=== PATIENT | male | born 1940 | race Caucasian/White ===

== ENCOUNTER → 2016-12-17 | Outpatient (CLI) | payer BC ==
[~2016-12-17] MED LIST: ASPI-461 PO; CHOL100027 PO; CIPR-255 PO; FINA5TAB4 PO; GLUC10007 PO; LORA10TA5 PO; MULT1CAP17 PO; QUIN10TA25 PO; SIMV20TA5 PO
--- NOTE | 2016-12-17 10:26 | DIAGNOSTIC IMAGING REPORT ---
ULTRASOUND KIDNEYS AND BLADDER CLINICAL HISTORY: Renal insufficiency. COMPARISON STUDY: No priors. TECHNIQUE: Real-time, grayscale, and color flow sonography of the kidneys and bladder is performed. Images are reviewed in the transverse and longitudinal planes. FINDINGS: Kidneys: The kidneys demonstrate mild cortical atrophy and are normal in echotexture. The right kidney measures 11.6 x 6.1 x 5.4 cm and the left kidney measures 11.8 x 6.3 x 5.3 cm. There is no hydronephrosis. No shadowing renal calculi are identified. A 10 mm echogenic focus in the interpolar left kidney may present infolded pericardial fat or a tiny angiomyolipoma. A 10 mm left renal cyst is identified. There is no sonographic evidence of contour deforming renal mass lesion. No perinephric fluid is identified. Bladder: The bladder is normal in appearance. Bilateral ureteral jets were seen. Upper abdomen: Survey images of the liver show evidence of hepatic steatosis. IMPRESSION: 1. The kidneys demonstrate mild cortical atrophy and are without hydronephrosis. 2. The bladder was normal as imaged. 3. Hepatic steatosis. 4. A 10 mm ovoid echogenic focus in the interpolar left kidney may represent a small angiomyolipoma versus adjacent perinephric fat. Electronically signed by: Alvarez Dumont M.D. 12/17/2016 10:24 AM Dictated Date/Time: 12/17/2016 10:22 AM
== END | disposition home or self-care (01) ==
LOC: C.ULTRBC 09:29
PROVIDERS: ATTEND Family Medicine
DX: N28.9 Disorder of kidney and ureter, unspecified (principal); K76.0 Fatty (change of) liver, not elsewhere classified; R93.41 Abnormal radiologic findings on diagnostic imaging of renal pelvis, ureter, or bladder

== ENCOUNTER → 2017-08-24 | Outpatient (CLI) | payer BC, OTHER ==
[~2017-08-24] MED LIST changes: +CINN1CAP2 PO; +GLUCTAB7 PO; -LORA10TA5 PO; +LORA10TA6 PO; +NAPR1TAB9 PO; +OMEG10007 PO; -QUIN10TA25 PO; +QUIN1TAB61 PO; +TAMS0.4C38 PO
--- NOTE | 2017-08-24 08:30 | DIAGNOSTIC IMAGING REPORT ---
SINGLE VIEW PELVIS CLINICAL HISTORY: Preoperative examination. Right hip arthroplasty. FINDINGS: An AP view of the hips and lower pelvis is compared to study dated 07/02/2017. The skeletal structures are osteopenic. No fracture is identified. There is moderate arthritic change in the right hip with near complete loss of the joint space which is greatest superiorly. There is mild associated bony sclerosis. Mild to moderate joint space narrowing is seen in the left hip. The sacral iliac joints are normal as imaged. Calcified phleboliths are observed in the pelvis. The overlying soft tissues are normal in appearance. IMPRESSION: Osteopenia and arthritic change in the hips, right greater than left. See above. Electronically signed by: Alvarez Dumont M.D. 08/24/2017 8:28 AM Dictated Date/Time: 08/24/2017 8:27 AM
== END | disposition home or self-care (01) ==
LOC: C.RDSM 08:20
PROVIDERS: ATTEND Physician Assistant
DX: Z01.818 Encounter for other preprocedural examination (principal); M25.551 Pain in right hip; M85.89 Other specified disorders of bone density and structure, multiple sites

== ENCOUNTER 2017-09-16 05:05 | Inpatient (IN) | payer BC, OTHER ==
--- NOTE | 2017-08-24 10:25 | PAT Medication Instructions ---
Service Date Aug 24, 2017. Current Home Medication List Aspirin (Aspirin), 81 MG PO QPM Cinnamon (Cinnamon), 500 MG PO BID Finasteride (Proscar), 5 MG PO QAM Fish Oil (Dixie-3), 1 CAP PO BID Tblobqsdmxv-Oreiklgutma-Ycs C- (Glucosamine Chondroitin), 1 TAB PO BID Loratadine (Claritin), 10 MG PO QPM Multiple Vitamins W/ Minerals (Multi For Him), 1 CAP PO QAM Naproxen (Aleve), 220 MG PO BID Quinapril Hcl (Accupril), 10 MG PO QAM Simvastatin (Zocor), 20 MG PO QPM Tamsulosin Hcl (Flomax), 0.4 MG PO BID Medication Instructions For Your Scheduled Surgery - Hold the following medications 2 weeks prior to surgery: Fish Oil (Dixie-3), 1 CAP PO BID Ibtehadulyx-Zmlxpdmktuk-Fbv C- (Glucosamine Chondroitin), 1 TAB PO BID Cinnamon (Cinnamon), 500 MG PO BID - Hold the following medications 10 days prior to surgery per surgeon for instructions: Naproxen (Aleve), 220 MG PO BID Aspirin (Aspirin), 81 MG PO QPM - Hold the following medications the morning of surgery: Finasteride (Proscar), 5 MG PO QAM Multiple Vitamins W/ Minerals (Multi For Him), 1 CAP PO QAM Quinapril Hcl (Accupril), 10 MG PO QAM Tamsulosin Hcl (Flomax), 0.4 MG PO BID - Take the following medications as scheduled the night before surgery: Tamsulosin Hcl (Flomax), 0.4 MG PO BID Simvastatin (Zocor), 20 MG PO QPM Loratadine (Claritin), 10 MG PO QPM If you have any questions please call us at [phone] or [phone] or [phone]
[2017-08-24 10:54] LABS: BASO % 0.5 %; BASO ABS # 0.02 K/uL (0-0.2); EOS % 3.2 %; EOS ABS # 0.14 K/uL (0-0.5); HEMATOCRIT 40.8 % (42-52); HEMOGLOBIN 14.1 g/dL (14.0-18.0); IG# 0.01 K/uL (0.00-0.02); LYMPH % 24.7 %; LYMPH ABS # 1.08 K/uL (1.2-3.4); MEAN CELL VOLUME 89.7 fL (80-100); MEAN CORPUSCULAR HGB CONC 34.6 g/dl (32-36); MEAN PLATELET VOLUME 10.1 fL (7.4-10.4); MONO ABS # 0.35 K/uL (0.11-0.59); NEUT % 63.4 %; NEUT ABS # 2.77 K/uL (1.4-6.5); PLATELET COUNT 150 K/uL (130-400); RED CELL DISTRIBUTION WIDTH CV 13.6 % (11.5-14.5); RED CELL DISTRIBUTION WIDTH SD 44.4 fL (36.4-46.3); WHITE BLOOD COUNT 4.37 K/uL (4.8-10.8)
[2017-08-24 11:05] LABS: PTT PATIENT 28.1 SECONDS (21.0-31.0)
[2017-08-24 11:50] LABS: HEMOGLOBIN A1C 5.7 % (4.5-5.6)
[2017-08-24 12:12] LABS: ALBUMIN 4.2 gm/dl (3.4-5.0); CALCIUM 8.6 mg/dl (8.5-10.1); CREATININE 0.97 mg/dl (0.60-1.40); POTASSIUM 4.2 mmol/L (3.5-5.1)
[2017-08-24 12:14] LABS: TOTAL PROTEIN 7.3 gm/dl (6.4-8.2)
--- NOTE | 2017-08-24 13:59 | History and Physical ---
History & Physical Date of Service Aug 24, 2017. History & Physical CHIEF COMPLAINT: Right hip pain. HISTORY OF PRESENT ILLNESS: This 77-year-old male presents to clinic today for his preoperative history and physical. The patient complains of significant right hip pain with associated gait disturbance since he began working at [employer] in December 2016. The patient states that over the past few months it has been affecting his activities of daily living. He notes significant difficulty when trying to get in and out of his car and while ambulating for long hours at work. The patient has had no relief with the use of nonsteroidal agents, but denies any injury to the right hip or any numbness or tingling in the affected extremity. PAST SURGICAL HISTORY: Colonoscopy x2, mole excision from the face and back. PAST MEDICAL HISTORY: Sleep apnea, benign prostatic hypertrophy, prediabetes, hepatic steatosis, hypertension, hyperlipidemia and history of renal calculi. FAMILY HISTORY: Brother diabetes and myocardial infarction. Father diabetes and myocardial infarction. Mother diabetes and stroke. ALLERGIES: The patient has no known drug allergies. HE HAS ENVIRONMENTAL ALLERGIES TO POLLEN. CURRENT MEDICATIONS: Aleve 220 mg 1 tab twice daily as needed for pain, aspirin 81 mg oral tablet 1 tab daily, cinnamon 500 mg oral tablet 2 caps daily , finasteride 5 mg oral tablet 1 tab daily, fish oil oral capsule 1200 mg daily , glucosamine chondroitin MSM complex unknown dosage twice daily, loratadine 10 mg oral tablet 1 tab daily as needed for allergy relief, multivitamin unknown dosage 1 tab daily, quinapril 10 mg oral tablet 1 tab daily, simvastatin 20 mg oral tablet 1 tab at bedtime, tamsulosin 0.4 mg oral capsule 2 caps daily. SOCIAL HISTORY: The patient denies history of smoking, alcohol or illicit drug use. PHYSICAL EXAMINATION: Skin: The patient's skin is normal in appearance. No open skin lesions or discharge. Eyes: Pupils are equal and reactive to light and accommodating. Extraocular movements are intact. Throat: Posterior oropharynx clear with absence of edema, erythema or exudate. Cardiovascular exam: The patient has a regular rate and rhythm with no murmurs or gallops appreciated. Lungs: Auscultation of lung de la o reveal clear breath sounds throughout with no wheezing, rales or rhonchi. Abdomen is mildly obese, nondistended, nontender with normoactive bowel sounds. Extremities: Right hip , the patient is able to flex to 90 degrees with referred pain to the joint and experiences referred pain with right internal and external rotation. Has a positive Stinchfield test. Negative log roll test. Negative straight leg raise test and DAVID test is 3 fists. The patient has no edema, erythema, ecchymosis, warmth or palpable deformity, no dermatomal deficit. He is neurovascularly intact in the right lower extremity. Peripheral pulses palpable. Capillary refill is brisk. Neurological exam: Cranial nerves 2-12 are intact. No motor or sensory deficit. Psychological/general exam: The patient is alert and oriented x3 with proper grooming and hygiene. DIAGNOSIS: Right hip osteoarthritis. PROCEDURE: Right total hip arthroplasty. DIAGNOSTIC IMAGING: Images of the right hip showed rjyv-[id number]-hlbx osteoarthritis with pistol inspector casing deformity of the head and subchondral sclerosis with cyst formation. PLAN: The patient is scheduled to undergo this procedure with Dr. Bernard Olivera at the [facility] on 09/16/2017. Risks and complications of the surgery such as infection, bleeding, pain, scarring, nerve and blood vessel damage, weakness, wound problems, stiffness, incomplete relief of symptoms, heart attack, stroke, , hardware failure, loosening, wear, fracture, dislocation, leg length inequality, blood clots and embolism were explained to the patient during today's visit by Dr. Olivera. Informed consent to perform the procedure was obtained. We will also obtain preoperative medical clearance from the patient's primary care provider, Dr. Karol Cool. We will also obtain a preoperative EKG, CBC, CMP, PT, INR, PTT, microscopic urinalysis, urine culture, nasal swab for MRSA and a hemoglobin A1c. The patient states he will receive this testing prior to his preanesthesia clearance appointment at the hospitalist this morning. The patient states he has a walker at home that he will bring with him on the day of surgery. He was advised that he will be provided with prescriptions for pain medication and physical therapy upon discharge from the hospital. The patient states he will most likely do physical therapy with home nursing for 2 weeks and then continue outpatient physical therapy at [facility] in [place], [place]. The patient was given information about lectures he can attend involving joint replacement and was advised that he will need to take antibiotics after joint replacement surgery prior to dental procedures. Given instruction about obtaining a handicap placard and a sheet was filled out for him today and given formal instruction about total hip precautions. The patient and his verbalized understanding of all information provided at today's visit and thanks us for the care they have received and state if they have questions or concerns that should arise prior to his scheduled surgery date they will contact the clinic accordingly.
[~2017-09-16] VITALS: Ht 177.8 cm; Wt 96.9 kg
[2017-09-16] VITALS (7 sets, daily range): BP systolic 112–137; BP diastolic 64–82; PULSE 82–106; TEMP 36.4–36.8; O2SAT 95–98; Ht 177.8 cm; Wt 96.9 kg
[~2017-09-16 05:05] MED LIST changes: -CHOL100027 PO; -CIPR-255 PO; -GLUC10007 PO
[2017-09-16] MEDS ORDERED: DEXAMETHASONE 4 MG TAB PO SCH (06:00)
[2017-09-16] MEDS ORDERED: LACTATED RINGER'S 1000ML IV SCH (06:00)
[2017-09-16] MEDS ORDERED: SCOPOLAMINE 1.5 MG TDSY TD SCH (06:00)
[2017-09-16] MEDS ORDERED: TRAMADOL HCL 50 MG TAB PO SCH (06:00)
[2017-09-16] MEDS ORDERED: LACTATED RINGER'S 1000ML 500 ML IV SCH (06:00)
[2017-09-16] MEDS ORDERED: CeleBREX 200 MG CAP PO SCH (06:00)
[2017-09-16] MEDS ORDERED: CEFAZOLIN 2000MG IV PUSH 10 ML IV SCH (06:00)
[2017-09-16] MEDS ORDERED: FAMOTIDINE 20 MG TAB PO SCH (06:00)
[2017-09-16] MEDS ORDERED: ACETAMINOPHEN 500 MG TAB PO SCH (06:00)
[2017-09-16] MEDS ORDERED: ROPIVACAINE 5MG/ML 30 ML 150 MG, BUPIVACAINE/EPINEPHR 0.5% MPF 30 ML, KETOROLAC TROMETH... INFIL SCH ×7 (06:00)
[2017-09-16] MEDS ORDERED: BUPIVACAINE 0.5 % 5 MG/1 ML PF 10ML VIAL ONE (06:20)
[2017-09-16] MEDS: TRANEXAMIC ACID INJ 1,000 MG in SYRINGE 0 ML IV SCH ×2 (06:30→06:55)
[2017-09-16] MEDS ORDERED: FENTANYL CITRATE INJ 50 MCG/1 ML 2 ML VIAL ONE (06:39)
[2017-09-16] MEDS ORDERED: PROPOFOL IV EMULSION 10 MG/ML 20 ML VIAL IV ONE (06:39)
[2017-09-16] MEDS ORDERED: LIDOCAINE HCL 2% 2 ML VIAL (20MG/ML) ONE (06:39)
[2017-09-16] MEDS ORDERED: MIDAZOLAM HCL 1 MG/ML 2ML VIAL ONE (06:39)
--- NOTE | 2017-09-16 06:50 | History & Physical Bridge Note ---
H&P Re-Evaluation Bridge Note: I have examined the patient, reviewed the History & Physical and in the interval since the performance of the History & Physical I have noted the following changes of clinical significance: No changes noted
[2017-09-16] MEDS ORDERED: POVIDONE-IODINE OP SOLN 30 ML BTL ONE (06:59)
[2017-09-16] MEDS ORDERED: ORTHO JOINT ANESTHETIC ONE (06:59)
[2017-09-16] MEDS ORDERED: NURSING VERBAL MED ORDER ONE (07:00)
[2017-09-16] MEDS ORDERED: BACITRACIN 50000 UNIT VIAL ONE (07:00)
[2017-09-16] MEDS ORDERED: ONDANSETRON INJ 2 MG/ML 2 ML VIAL ONE (07:34)
[2017-09-16] MEDS ORDERED: EpHEDrine SULFATE 50MG/5ML SYR ONE (07:47)
[2017-09-16] MEDS ORDERED: PHENYLEPHRINE 100MCG/ML 5ML SYR ONE (07:47)
--- NOTE | 2017-09-16 09:04 | [facility] Post Operative Brief Note ---
Immediate Operative Summary Operative Date Sep 16, 2017. Pre-Operative Diagnosis Right Hip Osteoarthritis Post-Operative Diagnosis Right Hip Osteoarthritis Procedure(s) Performed Right Total Hip Arthroplasty, Uncemented Surgeon Dr. Olivera Assistant Purchasing Manager Surgeon(s) Severino Fernandez PA-C Estimated Blood Loss 100 ML Findings Primary hip osteoarthritis. Metal on polyethylene bearing total hip arthroplasty performed Fluids (cc crystalloids) 1500 Specimens a. Right Femoral Head Drains None Anesthesia Spinal with local Complication(s) None Disposition Recovery Room / PACU
--- NOTE | 2017-09-16 09:23 | [facility] Operative Report ---
Operative Report Operative Date Sep 16, 2017. Pre-Operative Diagnosis Right Hip Osteoarthritis Post-Operative Diagnosis Right Hip Osteoarthritis Procedure(s) Performed Right Total Hip Arthroplasty, Uncemented Surgeon Dr. Olivera Drying Tunnel Operator Surgeon(s) Severino Fernandez PA-C Estimated Blood Loss 100 ML Findings Severe DJD of Right Hip Fluids 1500 Specimens a. Right Femoral Head Drains None Anesthesia Spinal with local Complication(s) None Disposition Recovery Room / PACU I attest to the content of the Intraoperative Record and any orders documented therein. Any exceptions are noted below.
[2017-09-16] MEDS ORDERED: DiphenhydrAMINE HCL 50 MG/ML VIAL IV PRN (09:30)
[2017-09-16] MEDS ORDERED: MAGNESIUM HYDROXIDE SUSP 30 ML UDC PO PRN (09:30)
[2017-09-16] MEDS ORDERED: MoRPHine SULFATE 2 MG/ML CARP IV PRN (09:30)
[2017-09-16] MEDS ORDERED: ATROPINE SULFATE 0.1 MG/ML 5ML SYR IV PRN (09:30)
[2017-09-16] MEDS ORDERED: METOCLOPRAMIDE HCL INJ 5 MG/ML 2 ML VIAL IV PRN (09:30)
[2017-09-16] MEDS ORDERED: PROMETHAZINE HCL INJ 12.5 MG in SODIUM CHLORIDE 0.9% 50ML 50 ML IV PRN (09:30)
[2017-09-16] MEDS ORDERED: TAMSULOSIN HCL 0.4 MG CAP PO PRN (09:30)
[2017-09-16] MEDS ORDERED: NALOXONE HCL 0.4 MG/1 ML VIAL/CARP IV PRN (09:30)
[2017-09-16] MEDS ORDERED: FLUMAZENIL 0.1 MG/1 ML 10 ML VIAL IV PRN (09:30)
[2017-09-16] MEDS ORDERED: ONDANSETRON INJ 2 MG/ML 2 ML VIAL IV PRN ×2 (09:30)
[2017-09-16] MEDS ORDERED: ALUMINUM/MAGNESIUM/SIMETH (MAALOX MAX) 30 ML UDC PO PRN (09:30)
[2017-09-16] MEDS ORDERED: EpHEDrine SULFATE INJ 50 MG/ML AMP IV PRN (09:30)
--- NOTE | 2017-09-16 09:52 | OPERATIVE REPORT ---
DATE OF OPERATION: 09/16/2017 PREOPERATIVE DIAGNOSIS: Right hip osteoarthritis. POSTOPERATIVE DIAGNOSIS: Same. OPERATION PERFORMED: Right total hip arthroplasty. SURGEON: Bernard Olivera MD COMMERCIAL COLLECTIONS DRIVER: MILTON Cuellar ESTIMATED BLOOD LOSS: 100 mL. FLUIDS: 1500 mL crystalloid. IMPLANTS: 1. DePuy [place] Gription acetabular sector cup 56-mm outer diameter. 2. Two 6.5-mm screws, measuring 40 and 20 mm respectively. 3. DePuy [place] polyethylene acetabular liner, 56 mm outer diameter for a 36 head neutral. 4. DePuy [place] tapered size 4 high offset stem. 5. A 36 mm/+5 offset metal femoral head. SPECIMENS: Femoral head. COMPLICATIONS: None. INDICATIONS: Mr. Jarrell is a 77-year-old male with right hip osteoarthritis that has been refractory to conservative management. X-ray showed [id number] arthritis. It is affecting his activities of daily living. I had a long discussion with him about the risks and benefits of surgery, alternatives to surgery and expected outcomes. After reviewing all these, he elected to proceed with surgery. All questions were answered. Informed consent was signed. OPERATIVE FINDINGS: Primary hip osteoarthritis. A metal on polyethylene bearing total hip arthroplasty was performed. DESCRIPTION OF PROCEDURE: The patient was identified in the preoperative holding area, where surgical site was marked. He was given a spinal anesthetic and then brought back to main operating room, where he was placed on the operating room table, moved into the lateral decubitus position and all bony prominences were padded. Perioperative antibiotics were administered. He was prepped and draped in normal sterile fashion. Prior to incision, a multidisciplinary time-out was called. All in the room were in agreement. We began by making a 12-cm incision for a posterolateral approach to the hip centered over the posterolateral aspect of the greater trochanter. We dissected down through subcutaneous tissues to the level of the fascia. The Meyers retractor was used to elevate the soft tissues off the fascia to facilitate later closure. We then incised through the fascia in line with the incision. A Charnley bow was placed. Trochanteric bursa was excised. The piriformis and short external rotators were identified. The quadratus femoris was dissected off the posterior aspect of the femur. Piriformis and short external rotators were dissected off. A box cut was made in the capsule and the hip was dislocated. The angle cutting guide was used for a 10-mm femoral neck resection. This was done without difficulty. We then exposed the acetabulum. We began by medializing with the size 50 reamer. We then sequentially reamed up by 1 to a size 56 reamer. The Gription acetabular cup was then impacted into place with 40 degrees of lateral opening and 20 degrees of anteversion. Two cancellous screws were placed. The polyethylene liner was impacted into position, taking great care to ensure the locking mechanism had engaged. Next, the femur was exposed. The soft tissues from the piriformis fossa were excised. The Light Magic cutter was used to remove the lateral neck. We then used the lateralizing reamer as well as a rattail to remove the lateral bone. We then reamed up to a size 4 reamer. We broached them up to a size 4 broach, which had excellent torsional stability. We then trialed him, starting with a high offset neck and a +1.5 mm head. His shuck test was somewhat loose and he had just a slight shortened leg length on this side by a couple of millimeters. I therefore redislocated the hip and trialed with the +5 head. Now, he had an appropriate shuck test. His leg lengths were symmetric. He had no impingement with external rotation and extension. He was stable in the sleeper position. At 90 degrees of hip flexion, he could be internally rotated 50 degrees before levering out of the cup. I was happy with these stability findings and therefore, elected to open these components. The femoral trial was then removed. The femoral canal was irrigated and dried. The stem was then impacted down into position. It sat at the same level as the trial. Therefore, the +5/36 mm diameter femoral head was impacted onto the clean and dry trunnion. The hip was relocated without difficulty. The wound was then soaked with a dilute Betadine and saline mixture for 3 minutes. It was then sucked out. We then injected the hip with our injection cocktail containing ropivacaine, epinephrine, ketorolac, dexamethasone, and clonidine. The short external rotators and piriformis were repaired through bone tunnels in the posterior aspect of the greater trochanter. The fascia was run with 0 PDS. The deep layers of subcutaneous tissue were closed with a running 0 PDS suture. The skin was closed with a subcuticular 3-0 Monocryl. Steri-Strips were applied followed by Silverlon dressing. A pressure dressing was then applied over the Silverlon with 4 x 4's, ABD and foam tape. The patient was placed into an abduction pillow. He was transferred onto the hospital bed and then rolled to the recovery room in stable condition. POSTOPERATIVE COURSE: The patient will be admitted to the hospital. He will be on aspirin twice daily for DVT prophylaxis as well as mechanicals. He will be on posterior hip precautions. He will work with PT and OT daily. Anticipate a 1-day overnight hospital stay. I attest to the content of the Intraoperative Record and any orders documented therein. Any exception s are noted below.
[2017-09-16] MEDS ORDERED: MoRPHine SULFATE 4 MG/ML 1 ML CARP\\VIAL IV PRN (10:00)
--- NOTE | 2017-09-16 10:12 | DIAGNOSTIC IMAGING REPORT ---
R PELVIS/UNILATERAL HIP 1 VIEW HISTORY: 77 years-old Male IN PACU - A/P PELVIS and cross table lateral of replaced hip status post right hip arthroplasty. Degenerative joint disease. COMPARISON: Pelvis radiograph 08/24/2017 TECHNIQUE: AP view the pelvis with crosstable lateral view of the right hip FINDINGS: Mild to moderate left hip osteoarthritis. Postoperative changes compatible with right hip arthroplasty. Alignment is satisfactory without periprosthetic fracture. Expected postsurgical soft tissue swelling and deep tissue air about the right hip. No retained foreign bodies identified. No pelvic ring fracture identified. Probable phleboliths. IMPRESSION: Right hip arthroplasty with satisfactory alignment. The above report was generated using voice recognition software. It may contain grammatical, syntax or spelling errors. Electronically signed by: Richardson Bowling M.D. 09/16/2017 10:10 AM Dictated Date/Time: 09/16/2017 10:09 AM
--- NOTE | 2017-09-16 10:25 | Anesthesiology Progress Note ---
Anesthesia Post Op Note Date & Time Sep 16, 2017 at 10:25 Vital Signs Pain Intensity: 0 Vital Signs Past 12 Hours Date Time Temp Pulse Resp B/P (MAP) Pulse Ox O2 Delivery O2 Flow Rate FiO2 09/16/17 10:22 93 14 18 10:22 94 14 97 18 10:21 139/80 18 10:17 86 17 96 18 10:17 86 17 18 10:16 136/77 18 10:12 85 17 18 10:12 85 17 95 18 10:11 136/78 18 10:07 89 17 96 09/16/17 10:07 36.3 18 10:07 89 17 18 10:06 136/80 18 10:02 86 16 18 10:02 86 16 97 18 10:01 133/79 18 10:01 133/79 18 09:57 91 16 18 09:57 91 16 96 18 09:57 91 16 96 18 09:57 91 16 18 09:56 129/80 18 09:56 129/80 18 09:52 86 17 95 09/16/18 09:52 87 17 18 09:52 87 17 18 09:52 86 17 95 18 09:51 129/79 18/18 09:48 93 15 94 09/16/18 09:48 92 15 18/18 09:46 124/75 18/18 09:43 89 16 18/18 09:43 89 16 96 18 09:42 89 14 97 18/18 09:42 89 14 18/18 09:41 121/76 09/16/18 09:37 89 18 97 18/18 09:37 89 18 18/18 09:36 126/72 18/18 09:32 87 18 98 18 09:32 87 18 09/16/18 09:31 114/65 18 09:27 92 26 97 09/16/17 09:27 90 26 09/16/17 09:26 131/74 09/16/17 09:23 139/85 09/16/17 09:22 88 17 98 09/16/17 09:22 87 17 09/16/17 09:22 36.0 89 15 139/85 99 Oxymask 10 09/16/17 05:39 36.7 82 16 137/82 96 Room Air Notes Mental Status: alert / awake / arousable, participated in evaluation Pt Amnestic to Procedure: Yes Nausea / Vomiting: adequately controlled Pain: adequately controlled Airway Patency, RR, SpO2: stable & adequate BP & HR: stable & adequate Hydration State: stable & adequate Neuraxial Anesthesia: was administered, sensory block is resolving Anesthetic Complications: no major complications apparent
[2017-09-16] MEDS ORDERED: TRANEXAMIC ACID INJ 1,000 MG in SODIUM CHLORIDE 0.9% 100ML 100 ML IV ONE (14:00)
--- NOTE | 2017-09-16 14:07 | Discharge Instructions ---
Discharge Instructions Date of Service Sep 16, 2017. Admission Reason for Admission: Right Hip Osteoarthritis Discharge Discharge Diagnosis / Problem: Right hip osteoarthritis Discharge Goals Goal(s): Decrease discomfort, Improve function, Increase independence Activity Recommendations Activity Limitations: as noted below Lifting Limitations: none Exercise/Sports Limitations: until after follow-up appointment May Resume Sexual Activity: after follow-up appointment Shower/Bathe: tomorrow, keep incision dry Driving or Machine Use: No driving until cleared by orthopedic surgeon Weightbearing Status: Right weightbearing (as tolerated with aide of walker) . Instructions / Follow-Up Instructions / Follow-Up Post-operative Instructions Dear Patient and Family/Friends, Before you are discharged from the hospital, it is important to know what to expect when you get home after surgery. To that end, we have created this sheet of discharge instructions which covers many commonly asked questions. Make sure you go through this sheet in its entirety with your nurse before you are discharged. Please note that we will go over the specifics of your surgery and recovery when you return for your first post-operative visit. Sincerely, Dr. Olievra Pain Expect to be in a fair amount of pain after surgery. Remember, our goal is not to eliminate your pain, but to make it tolerable. It is a good idea to stay ahead of your pain by taking the medications you were prescribed once you get home. Typically, the pain starts improving 3-7 days after surgery. You should start weaning off the narcotic pain medication (oxycodone, hydrocodone, hydromorphone, morphine) as soon as your pain improves. Please call our office if your pain is not adequately controlled. Ice Ice your operative site at least 5 times a day for 15-30 minutes at a time. Make sure you have a thin cloth between the ice or cooling unit and your skin to prevent lizama bite. This is especially important if you received a nerve block. Continue icing your operative site for the first 5-7 days after surgery , then as needed. Diet/Nausea/Vomiting Start by drinking clear liquids and eating crackers. If you can tolerate this, then you may resume your normal diet. If you feel nauseated or vomit, take Zofran/ondansetron (if prescribed). Please call our office if you have intractable nausea or vomiting, or, if after hours, you may go to the Emergency Room for help. Constipation Constipation is a common side effect of narcotic pain medication. If you have not had a bowel movement within 2 days after surgery, we recommend purchasing an over the counter laxative such as Milk of Magnesia, Dulcolax, or Miralax from a local pharmacy, and taking it as instructed. Call our clinic if any questions. Slings and Braces If you were placed in a sling or brace, it must be worn at all times, including sleep. You may remove your sling or brace for physical therapy, home exercises , and showering. The length of time you will be in your brace and range of motion restrictions depends on what surgery you had; these details will be reviewed at your first post-operative appointment. Nerve block The anesthesia team sometimes places a nerve block to help with post-operative pain control. This results in significant numbness and inability to move the extremity. The nerve block usually wears off in 8-12 hours, but sometimes can last up to 24 hours. Please call our office if you are still unable to move your extremity after 24 hours, unless you received a pain pump to take home. Nerve blocks typically wear off quickly, so start taking pain medication as soon as you start feeling soreness near your surgical site. Weight bearing and Range of Motion. Do not bear any weight through your operative extremity immediately after surgery. If you had upper extremity surgery, do not lift anything with that arm. If you are in a knee brace, keep it locked in place until your follow-up. We will discuss your weight bearing, range of motion, and lifting restrictions in detail at your first post-operative appointment. Continuous Passive Motion (CPM) Machine If you were prescribed a CPM machine, it will start after your first post- operative appointment, at which time we will give you instructions on the range of motion settings and duration of treatment Physical therapy You will be given a prescription for physical therapy or occupational therapy at your first post-operative appointment. Typically, patients start therapy within 1 week of surgery Wound care and showering We will inspect your wound at your first post-operative visit, and may do a dressing change at that time. Most patients will be in a water-proof dressing that is removed 14 days after surgery. It is normal to see some dried blood on the dressing. Do not remove your dressing, paper strips or sutures yourself unless you are given permission. Showering is allowed the day after surgery. Do not scrub or remove any dressings. The wound should not be submerged underwater (i.e. in a bathtub or pool) until 4 weeks after surgery PAOLA stockings If you were given white stockings, these are to be worn at all times except to shower (on both legs) for the first 2 weeks after surgery. Driving You may not drive while taking narcotic pain medication or while in a cast, splint, sling or brace. You, the patient, need to make the final determination about when you are safe to drive, however, the earliest you may consider driving after surgery is below: Hand/Wrist/Elbow Surgery: 3 days Shoulder Surgery: 2 weeks Hip,/Knee/Ankle Surgery: 4 weeks Fracture repair: 6 weeks Return to Work Your return to work depends on what surgery was done and what type of work you do. Please bring any paperwork your employer needs completed to your first post -operative visit. Also, bring a description of your job duties, as this helps us to understand what risks you may face at work. Travel Avoid long distance travel (greater than 1 hour) in airplanes and cars for the first 6 weeks after surgery. If you must travel, you need to have a Doppler ultrasound done before you travel to rule out a blood clot in your legs. Follow-up You should have a follow-up appointment already scheduled 1-2 days after surgery. If not, please contact our office to make this appointment before you leave the hospital. When to call the office It is normal to have swelling and bruising in the limb that was operated on. This will improve with time. It is also normal to have fevers for the first 2 days after surgery. Reasons you should call your doctor include: Uncontrolled pain; Nausea, vomiting, or constipation that does not improve with medication; Fevers over 101.5, chills, sweats; Drainage or bleeding from the wound; Foul odor; Spreading areas of redness; Any other concerns Current Hospital Diet Patient's current hospital diet: Regular Diet Discharge Diet Recommended Diet: Regular Diet Procedures Procedures Performed: Right Total Hip Arthroplasty, Uncemented Pending Studies Studies pending at discharge: no Laboratory Results Hemoglobin A1c Test 08/24/17 10:30 Range/Units Estimated Average Glucose 117 mg/dl Hemoglobin A1c 5.7 H 4.5-5.6 % Medical Emergencies . Who to Call and When: Medical Emergencies: If at any time you feel your situation is an emergency, please call 911 immediately. . Non-Emergent Contact Non-Emergency issues call your: Primary Care Provider Call Non-Emergent contact if: you have a fever, temperature is above 101.5, your pain is not controlled, your pain is worsening, wound has increased drainage, you have any medication questions . "Provider Documentation" section prepared by Severino Barillas. . VTE Core Measure Inpt VTE Proph given/why not?: Other Anticoagulation (Aspirin EC 81 mg), [facility] Drug Monitoring Program Search Results: patient reviewed within database, no issues identified, see additional documentation
[2017-09-16] MEDS: OXYCODONE HCL IR 5 MG TAB (IMMEDIATE RELEASE) PO PRN ×2 (14:09→18:00)
[2017-09-16] MEDS: FERROUS GLUCONATE 324 MG TAB PO SCH ×2 (14:13→17:42)
[2017-09-16] MEDS: ACETAMINOPHEN 500 MG TAB PO SCH ×2 (14:14→21:15)
--- NOTE | 2017-09-16 15:40 | Medical Consult ---
Consultation Date of Consultation: Sep 16, 2017. Attending Physician: Bernard Olivera MD Reason for Consultation: Medical management History of Present Illness This is a 77 yo M with PMHx of Sleep apnea, benign prostatic hypertrophy, prediabetes, hepatic steatosis, hypertension, hyperlipidemia and history of renal calculi who presented for elective R total hip arthroplasty by Dr. Olivera. The patient reports his pain is currently well controlled, as he took medication about 1 hour ago. He has sensation into his toes and feet at this point, only minor paresthesias. He ate lunch without any difficulty, but is not passing gas, moving bowels, and has not urinated yet. He plans on going home maybe even tomorrow, pending his PT/OT evals. He lives at home with his on the first floor of his home, and anticipates having home health services. Past Medical/Surgical History Medical Problems: Nonalcoholic hepatosteatosis JH (obstructive sleep apnea) HTN HLD Prediabetes BPH Surgical Problems: (1) S/P total hip arthroplasty Family History Brother diabetes and myocardial infarction. Father diabetes and myocardial infarction. Mother diabetes and stroke. Social History Smoking Status: Former Smoker Smokeless Tobacco Use: No Alcohol Use: none Drug Use: none Marital Status: Housing Status: lives with family Occupation Status: retired Allergies Coded Allergies: NO KNOWN DRUG ALLERGIES (Verified Allergy, Unknown, NONE, 08/24/17) POLLEN (Verified Allergy, Unknown, ITCHY EYES STUFFY NOSE, 08/24/17) Current Inpatient Medications Current Inpatient Medications Medications (Trade) Dose Ordered Sig/Zain Route Start Time Stop Time Status Last Admin Dose Admin Cefazolin Sodium 10 ml @ 2.5 mls/min PREOP IV 09/16/17 06:00 09/16/17 18:00 09/16/17 07:22 2.5 MLS/MIN Acetaminophen (Tylenol Tab) 1,000 mg PREOP PO 09/16/17 06:00 09/16/17 18:00 09/16/17 06:13 1,000 MG Celecoxib (CeleBREX CAP) 200 mg PREOP PO 09/16/17 06:00 09/16/17 18:00 09/16/17 06:13 200 MG Dexamethasone (Decadron Tab) 8 mg PREOP PO 09/16/17 06:00 09/16/17 18:00 09/16/17 06:13 8 MG Famotidine (Pepcid Tab) 20 mg PREOP PO 09/16/17 06:00 09/16/17 18:00 09/16/17 06:12 20 MG Tramadol HCl (Ultram Tab) 50 mg PREOP PO 09/16/17 06:00 09/16/17 18:00 09/16/17 06:12 50 MG Potassium Chloride/Dextrose/ Sod Cl 1,000 ml @ 100 mls/hr Q10H IV 09/16/17 12:45 09/17/17 09:22 Celecoxib (CeleBREX CAP) 200 mg BID PO 09/16/17 21:00 10/16/17 20:59 Oxycodone HCl (Roxicodone Immediate Rel Tab) 1 TABLET FOR PAIN RATING... Q4H PRN PO 09/16/17 09:30 09/30/17 09:29 09/16/17 14:09 5 MG Morphine Sulfate (MoRPHine SULFATE INJ) 2 mg Q4H PRN IV 09/16/17 09:30 09/30/17 09:29 Acetaminophen (Tylenol Tab) 1,000 mg Q8 PO 09/16/17 14:00 10/16/17 13:59 09/16/17 14:14 1,000 MG Magnesium Hydroxide (Milk Of Magnesia Susp) 30 ml Q6H PRN PO 09/16/17 09:30 10/16/17 09:29 Senna (Senokot Tab) 17.2 mg HS PO 09/16/17 21:00 10/16/17 20:59 Docusate Sodium (coLACE CAP) 100 mg BID PO 09/16/17 21:00 10/16/17 20:59 Diphenhydramine HCl (Benadryl Inj) 25 mg Q8H PRN IV 09/16/17 09:30 10/16/17 09:29 Al Hydrox/Mg Hydrox/Simethicone (Maalox Max Susp) 15 ml Q4H PRN PO 09/16/17 09:30 10/16/17 09:29 Multivitamins (Multivitamin Tab) 1 tab QAM PO 09/17/17 09:00 10/17/17 08:59 Ondansetron HCl (Zofran Inj) 4 mg Q6H PRN IV 09/16/17 09:30 10/16/17 09:29 Metoclopramide HCl (Reglan Inj) 10 mg Q6H PRN IV 09/16/17 09:30 10/16/17 09:29 Ferrous Gluconate (Ferrous Gluconate Tab) 324 mg TIDM PO 09/16/17 12:30 10/16/17 12:29 09/16/17 14:13 324 MG Pantoprazole Sodium (Protonix Tab) 40 mg QAM PO 09/17/17 09:00 09/21/17 08:59 Tamsulosin HCl (Flomax Cap) 0.4 mg QAM PRN PO 09/16/17 09:30 10/16/17 09:29 Cefazolin Sodium 2000 mg/Syringe 10 ml @ 2.5 mls/min Q8H IV 09/16/17 16:00 09/17/17 00:03 Dexamethasone Sodium Phosphate 10 mg/Syringe 2.5 ml @ 1 mls/min ONE ONCE IV 09/17/17 07:30 09/17/17 07:32 Aspirin (Ecotrin Tab) 81 mg DAILY PO 09/17/17 09:00 10/17/17 08:59 Finasteride (Proscar Tab) 5 mg QAM PO 09/17/17 09:00 10/17/17 08:59 Loratadine (Claritin Tab) 10 mg QPM PO 09/16/17 21:00 10/16/17 20:59 Simvastatin (Zocor Tab) 20 mg QPM PO 09/16/17 21:00 10/16/17 20:59 Enalapril Maleate (Vasotec Tab) 10 mg DAILY PO 09/17/17 09:00 10/17/17 08:59 Morphine Sulfate (MoRPHine SULFATE INJ) 4 mg Q4H PRN IV 09/16/17 10:00 09/30/17 09:59 Review of Systems Constitutional: No fever, No chills, No sweats, No weight loss, No fatigue Eyes: No eye pain, No redness ENT: No sore throat, No trouble swallowing Respiratory: No cough, No sputum, No shortness of breath Cardiovascular: No chest pain, No edema Abdomen: No pain, No nausea, No vomiting, No diarrhea, No constipation Musculoskeletal: No joint pain, No swelling Neurologic: + problem reported (See HPI), No weakness, No balance problems Psychiatric: No depression symptoms, No anxiety Endocrine: No fatigue Integumentary: No rash Physical Exam Date Time Temp Pulse Resp B/P (MAP) Pulse Ox O2 Delivery O2 Flow Rate FiO2 09/16/17 15:16 36.4 94 17 117/76 (90) 97 Nasal Cannula 2.0 09/16/17 14:20 91 20 114/79 (91) 97 Nasal Cannula 2.0 09/16/17 13:14 97 17 112/71 (85) 98 Nasal Cannula 2.0 09/16/17 12:49 106 19 121/71 (88) 95 Nasal Cannula 2.0 09/16/17 11:53 37.2 09/16/17 11:51 93 21 09/16/17 11:51 94 21 92 18 11:46 101 29 18 11:46 101 29 110/68 97 18 11:41 98 16 96 18 11:41 98 16 18 11:40 97 21 18 11:40 98 21 94 18 11:35 94 18 18 11:35 93 18 95 18 11:31 119/69 18 11:30 94 21 18 11:30 94 21 94 18 11:25 90 16 96 18 11:25 91 16 18 11:20 92 18 95 18 11:20 92 18 18 11:16 101/68 18 11:15 97 25 18 11:15 98 25 96 18 11:14 94 19 18 11:14 94 19 93 18 11:09 91 18 95 18 11:09 92 18 18 11:04 90 18 18 11:04 90 18 97 18 11:01 118/74 18 10:59 91 20 93 18 10:59 90 20 18 10:58 126/77 18 10:54 93 22 18 10:54 93 22 97 18 10:49 91 18 1/18/18 10:49 92 18 96 1/18/18 10:46 126/77 1/18/18 10:44 85 18 94 1/18/18 10:44 85 18 1/18/18 10:39 86 18 1/18/18 10:39 85 18 95 1/18/18 10:34 89 23 1/18/18 10:34 89 23 98 1/18/18 10:33 91 23 97 1/18/18 10:33 92 23 1/18/18 10:31 132/77 1/18/18 10:28 87 16 1/18/18 10:28 87 16 95 1/18/18 10:26 36.4 1/18/18 10:26 137/82 1/18/18 10:23 95 24 1/18/18 10:23 95 24 94 1/18/18 10:22 93 14 1/18/18 10:22 94 14 97 1/18/18 10:21 139/80 1/18/18 10:17 86 17 96 1/18/18 10:17 86 17 1/18/18 10:16 136/77 1/18/18 10:12 85 17 1/18/18 10:12 85 17 95 1/18/18 10:11 136/78 1/18/18 10:07 89 17 96 1/18/18 10:07 36.3 1/18/18 10:07 89 17 1/18/18 10:06 136/80 1/18/18 10:02 86 16 1/18/18 10:02 86 16 97 1/18/18 10:01 133/79 1/18/18 10:01 133/79 1/18/18 09:57 91 16 1/18/18 09:57 91 16 96 1/18/18 09:57 91 16 96 1/18/18 09:57 91 16 1/18/18 09:56 129/80 1/18/18 09:56 129/80 1/18/18 09:52 86 17 95 1/18/18 09:52 87 17 1/18/18 09:52 87 17 1/18/18 09:52 86 17 95 1/18/18 09:51 129/79 1/18/18 09:48 93 15 94 1/18/18 09:48 92 15 1/18/18 09:46 124/75 09/16/17 09:43 89 16 09/16/17 09:43 89 16 96 09/16/17 09:42 89 14 97 09/16/17 09:42 89 14 09/16/17 09:41 121/76 09/16/17 09:37 89 18 97 09/16/17 09:37 89 18 09/16/17 09:36 126/72 09/16/17 09:32 87 18 98 09/16/17 09:32 87 18 09/16/17 09:31 114/65 09/16/17 09:27 92 26 97 09/16/17 09:27 90 26 09/16/17 09:26 131/74 09/16/17 09:23 139/85 09/16/17 09:22 88 17 98 09/16/17 09:22 87 17 09/16/17 09:22 36.0 89 15 139/85 99 Oxymask 10 09/16/17 05:39 36.7 82 16 137/82 96 Room Air General Appearance: WD/WN, no apparent distress, + obese Head: normocephalic, atraumatic Eyes: PERRL, EOMI ENT: hearing grossly normal, pharynx normal Neck: supple, no JVD Respiratory/Chest: chest non-tender, lungs clear, no respiratory distress, no accessory muscle use Cardiovascular: regular rate, rhythm, no murmur, normal peripheral pulses Abdomen/GI: normal bowel sounds, non tender, soft, + pertinent finding Back: normal inspection Extremities/Musculoskelatal: no calf tenderness, no pedal edema, + pertinent finding (R hip bandage C/D/I, ice pack in place, hip immobilizer foam wedge in place) Neurologic/Psych: alert, normal mood/affect, oriented x 3 Skin: normal color, warm/dry Laboratory Results Last 24 Hours Test 09/16/17 06:22 09/16/17 09:34 Bedside Glucose 120 mg/dl 154 mg/dl Assessment & Plan This is a 77 yo M with PMHx of Sleep apnea, benign prostatic hypertrophy, prediabetes, hepatic steatosis, hypertension, hyperlipidemia and history of renal calculi who presented for elective R total hip arthroplasty by Dr. Olivera. S/p R AARON - DVT ppx with asa 81 mg BID, pain management and bowel regimen per primary team - PT/OT on board - Plans for discharge include home with home health services. JH - Maintained on 2 L of O2, does not wear O2 chronically HTN - Cont vasotec 10 mg daily HLD -Cont simvastatin 20 mg daily BPH - Continue flomax 0.4 mg daily DVT ppx: asa 81 mg BID, teds, scds Disposition: From home, discharge per primary team, likely within 1-2 days. Thank you for involving us in the care of Mr. Jarrell, we will follow along.
[2017-09-16] MEDS: D5W AND 1/2NSS + 20MEQ KCL 1,000 ML IV SCH (15:52)
[2017-09-16] MEDS ORDERED: CHECK SCOPOLAMINE PATCH PLACEMENT SCH (16:00)
[2017-09-16] MEDS: CEFAZOLIN IV 2,000 MG in SYRINGE 0 ML IV SCH ×2 (16:01→23:11)
[2017-09-16] MEDS ORDERED: PNEUMOCOCCAL POLYSACCHARIDES 25 MCG/0.5 ML VIAL/SYR IM. ONE (21:00)
[2017-09-16] MEDS ORDERED: LORATADINE 10 MG TAB PO SCH (21:00)
[2017-09-16] MEDS ORDERED: PNEUMOCOCCAL ADMINISTRATION CHARGE ONE (21:00)
[2017-09-16] MEDS ORDERED: SENNA 8.6 MG TAB PO SCH (21:00)
[2017-09-16] MEDS ORDERED: SIMVASTATIN 20 MG TAB PO SCH (21:00)
[2017-09-16] MEDS: DOCUSATE SODIUM 100 MG CAP PO SCH (21:13)
[2017-09-16] MEDS: CeleBREX 200 MG CAP PO SCH (21:14)
[2017-09-17 00:11] VITALS: BP 120/70; PULSE 71; TEMP 36.9; O2SAT 98
[2017-09-17] MEDS: D5W AND 1/2NSS + 20MEQ KCL 1,000 ML IV SCH ×2 (02:11→08:45)
[2017-09-17 03:50] VITALS: BP 126/75; PULSE 84; TEMP 36.8; O2SAT 97
[2017-09-17 05:44] LABS: BASO % 0.1 %; BASO ABS # 0.01 K/uL (0-0.2); EOS % 0.2 %; EOS ABS # 0.02 K/uL (0-0.5); HEMATOCRIT 33.9 % (42-52); HEMOGLOBIN 11.6 g/dL (14.0-18.0); IG# 0.03 K/uL (0.00-0.02); LYMPH % 8.9 %; LYMPH ABS # 0.85 K/uL (1.2-3.4); MEAN CELL VOLUME 88.5 fL (80-100); MEAN CORPUSCULAR HEMOGLOBIN 30.3 pg (25-34); MEAN CORPUSCULAR HGB CONC 34.2 g/dl (32-36); MEAN PLATELET VOLUME 9.6 fL (7.4-10.4); MONO % 9.7 %; MONO ABS # 0.93 K/uL (0.11-0.59); NEUT % 80.8 %; NEUT ABS # 7.74 K/uL (1.4-6.5); PLATELET COUNT 141 K/uL (130-400); RED CELL DISTRIBUTION WIDTH CV 13.4 % (11.5-14.5); RED CELL DISTRIBUTION WIDTH SD 43.1 fL (36.4-46.3); WHITE BLOOD COUNT 9.58 K/uL (4.8-10.8)
[2017-09-17] MEDS: ACETAMINOPHEN 500 MG TAB PO SCH (06:13)
[2017-09-17 06:19] LABS: CALCIUM 7.9 mg/dl (8.5-10.1); CREATININE 1.23 mg/dl (0.60-1.40); POTASSIUM 4.2 mmol/L (3.5-5.1)
[2017-09-17 06:57] VITALS: BP 128/74; PULSE 82; TEMP 36.7; O2SAT 94
[2017-09-17] MEDS ORDERED: DEXAMETHASONE INJ 10 MG in SYRINGE 0 ML IV ONE (07:30)
--- NOTE | 2017-09-17 07:57 | Anesthesiology Progress Note ---
Anesthesia Post Op Note Date & Time Sep 17, 2017 at 07:57 Vital Signs Pain Intensity: 0.0 Vital Signs Past 12 Hours Date Time Temp Pulse Resp B/P (MAP) Pulse Ox O2 Delivery O2 Flow Rate FiO2 09/17/17 07:15 Room Air 09/17/17 06:57 36.7 82 18 128/74 (92) 94 Room Air 09/17/17 03:50 36.8 84 16 126/75 (92) 97 CPAP 09/17/17 00:11 36.9 71 16 120/70 (87) 98 CPAP Notes Mental Status: alert / awake / arousable, participated in evaluation Pt Amnestic to Procedure: Yes Nausea / Vomiting: adequately controlled Pain: adequately controlled Airway Patency, RR, SpO2: stable & adequate BP & HR: stable & adequate Hydration State: stable & adequate Neuraxial Anesthesia: sensory block resolved Anesthetic Complications: no major complications apparent
--- NOTE | 2017-09-17 08:46 | Clinical Documentation Query ---
CLINICAL DOCUMENTATION QUERY A 77 yo M with PMHx of Sleep apnea, benign prostatic hypertrophy, prediabetes, hepatic steatosis, hypertension, hyperlipidemia and history of renal calculi who presented for elective R total hip arthroplasty. In your clinical opinion is this patient being managed for: ( ) Obesity hypoventilation syndrome ( x ) Not Agree, patient was post was routine on oxygen it was a taper off successfully, he does have obstructive sleep apnea which he has been on CPAP machine during asleep ( ) Other explanation of clinical findings (Please Explain) ( ) Unable to determine (Please Define) ( ) Need to Discuss The medical record reflects the following clinical findings, treatment, and risk factors. Clinical Indicators: JH, obesity Treatment: CPAP, continuous O2, pulse ox Risk Factors: S/P surgical intervention, obesity Please clarify and document your clinical opinion in the progress notes and discharge summary. Terms such as "probable", "suspected", "likely", "questionable", "possible", or "still to be ruled out" are acceptable. IF IN AGREEMENT, YOU MUST DOCUMENT ABOVE DIAGNOSTIC STATEMENT IN DAILY PROGRESS NOTES AND DISCHARGE SUMMARY. This document is not part of the patient's record. Thank You, Lupe Sierra RN [phone]
[2017-09-17] MEDS ORDERED: FINASTERIDE 5 MG TAB PO SCH (09:00)
[2017-09-17] MEDS ORDERED: MULTIVITAMIN TAB PO SCH (09:00)
[2017-09-17] MEDS ORDERED: PANTOprazole SOD 40 MG TAB PO SCH (09:00)
[2017-09-17] MEDS ORDERED: ENALAPRIL MALEATE 10 MG TAB PO SCH (09:00)
[2017-09-17] MEDS ORDERED: ASPIRIN 81 MG ECTAB PO SCH ×2 (09:00)
--- NOTE | 2017-09-17 09:11 | Orthopedic Progress Note ---
Orthopedic Progress Note Date of Service Sep 17, 2017. Subjective Post OP Day: 1 Reports: feeling well, pain controlled w PO medications, Denies: complaints, chest pain, SOB Additional Notes: Ambulated to bathroom and back without difficulty this AM. Objective hip located, capillary refill less than 2 sec., dressing C/D/I, incision C/D/I, A&O x3, toes mobile Date Time Temp Pulse Resp B/P (MAP) Pulse Ox O2 Delivery O2 Flow Rate FiO2 09/17/17 07:15 Room Air 09/17/17 06:57 36.7 82 18 128/74 (92) 94 Room Air 09/17/17 03:50 36.8 84 16 126/75 (92) 97 CPAP 09/17/17 00:11 36.9 71 16 120/70 (87) 98 CPAP 09/16/17 19:45 Room Air 09/16/17 19:06 36.5 100 18 128/64 (85) 98 Room Air 09/16/17 15:16 36.4 94 17 117/76 (90) 97 Nasal Cannula 2.0 09/16/17 14:20 91 20 114/79 (91) 97 Nasal Cannula 2.0 09/16/17 13:14 97 17 112/71 (85) 98 Nasal Cannula 2.0 09/16/17 12:49 106 19 121/71 (88) 95 Nasal Cannula 2.0 09/16/17 12:05 Nasal Cannula 2.0 09/16/17 12:05 36.8 97 16 116/68 (84) 97 Nasal Cannula 2.0 09/16/17 12:05 97 Nasal Cannula 2.0 09/16/17 11:53 37.2 09/16/17 11:51 93 21 09/16/17 11:51 94 21 92 09/16/17 11:46 101 29 09/16/17 11:46 101 29 110/68 97 09/16/17 11:41 98 16 96 09/16/17 11:41 98 16 09/16/17 11:40 97 21 09/16/17 11:40 98 21 94 09/16/17 11:35 94 18 09/16/17 11:35 93 18 95 09/16/17 11:31 119/69 09/16/17 11:30 94 21 1/18/18 11:30 94 21 94 1/18/18 11:25 90 16 96 1/18/18 11:25 91 16 1/18/18 11:20 92 18 95 1/18/18 11:20 92 18 1/18/18 11:16 101/68 1/18/18 11:15 97 25 1/18/18 11:15 98 25 96 1/18/18 11:14 94 19 1/18/18 11:14 94 19 93 1/18/18 11:09 91 18 95 1/18/18 11:09 92 18 1/18/18 11:04 90 18 1/18/18 11:04 90 18 97 1/18/18 11:01 118/74 1/18/18 10:59 91 20 93 1/18/18 10:59 90 20 1/18/18 10:58 126/77 1/18/18 10:54 93 22 1/18/18 10:54 93 22 97 1/18/18 10:49 91 18 1/18/18 10:49 92 18 96 1/18/18 10:46 126/77 1/18/18 10:44 85 18 94 1/18/18 10:44 85 18 1/18/18 10:39 86 18 1/18/18 10:39 85 18 95 1/18/18 10:34 89 23 1/18/18 10:34 89 23 98 1/18/18 10:33 91 23 97 1/18/18 10:33 92 23 1/18/18 10:31 132/77 1/18/18 10:28 87 16 1/18/18 10:28 87 16 95 1/18/18 10:26 36.4 1/18/18 10:26 137/82 1/18/18 10:23 95 24 1/18/18 10:23 95 24 94 1/18/18 10:22 93 14 1/18/18 10:22 94 14 97 1/18/18 10:21 139/80 1/18/18 10:17 86 17 96 1/18/18 10:17 86 17 1/18/18 10:16 136/77 1/18/18 10:12 85 17 1/18/18 10:12 85 17 95 1/18/18 10:11 136/78 1/18/18 10:07 89 17 96 1/18/18 10:07 36.3 18/18 10:07 89 17 18/18 10:06 136/80 18/18 10:02 86 16 09/16/18 10:02 86 16 97 18/18 10:01 133/79 18/18 10:01 133/79 18/18 09:57 91 16 18/18 09:57 91 16 96 18 09:57 91 16 96 18 09:57 91 16 18/18 09:56 129/80 1818 09:56 129/80 18 09:52 86 17 95 18 09:52 87 17 18 09:52 87 17 18 09:52 86 17 95 18 09:51 129/79 18 09:48 93 15 94 18 09:48 92 15 18 09:46 124/75 18 09:43 89 16 18 09:43 89 16 96 18 09:42 89 14 97 1818 09:42 89 14 18/18 09:41 121/76 1818 09:37 89 18 97 18 09:37 89 18 1818 09:36 126/72 1818 09:32 87 18 98 1818 09:32 87 18 1818 09:31 114/65 1818 09:27 92 26 97 1818 09:27 90 26 1818 09:26 131/74 1818 09:23 139/85 18/18 09:22 88 17 98 1818 09:22 87 17 1818 09:22 36.0 89 15 139/85 99 Oxymask 10 Laboratory Results 24 Hours: Test 09/17/17 05:32 White Blood Count 9.58 K/uL Red Blood Count 3.83 M/uL Hemoglobin 11.6 g/dL Hematocrit 33.9 % Mean Corpuscular Volume 88.5 fL Mean Corpuscular Hemoglobin 30.3 pg Mean Corpuscular Hemoglobin Concent 34.2 g/dl Platelet Count 141 K/uL Mean Platelet Volume 9.6 fL Neutrophils (%) (Auto) 80.8 % Lymphocytes (%) (Auto) 8.9 % Monocytes (%) (Auto) 9.7 % Eosinophils (%) (Auto) 0.2 % Basophils (%) (Auto) 0.1 % Neutrophils # (Auto) 7.74 K/uL Lymphocytes # (Auto) 0.85 K/uL Monocytes # (Auto) 0.93 K/uL Eosinophils # (Auto) 0.02 K/uL Basophils # (Auto) 0.01 K/uL Assessment & Plan Assessment: POD 1 s/p R AARON, doing well Plan: PT/OT this AM. Posterior hip precautions Discharge home if cleared by PT/OT ASA, TEDs, foot pumps for DVT prophylaxis
[2017-09-17] MEDS: DOCUSATE SODIUM 100 MG CAP PO SCH (09:46)
[2017-09-17] MEDS: FERROUS GLUCONATE 324 MG TAB PO SCH ×2 (09:46→12:29)
[2017-09-17] MEDS: CeleBREX 200 MG CAP PO SCH (09:47)
--- NOTE | 2017-09-17 11:12 | Progress Note ---
Subjective Date of Service: Sep 17, 2017. Subjective Pt evaluation today including: conversation w/ patient, conversation w/ family , physical exam, chart review, lab review, review of studies, review of inpatient medication list , Pleasant, out of bed to chair, pain well controlled, no complaining Review of Systems Constitutional: No fever, No chills, No sweats, No weight loss, No weakness, No fatigue, No problem reported Eyes: No worsening of vision, No eye pain, No redness, No discharge, No diplopia ENT: No hearing loss, No unusual epistaxis, No nasal symptoms, No sore throat, No tinnitus, No dental problems, No trouble swallowing Respiratory: No cough, No sputum, No wheezing, No shortness of breath, No dyspnea on exertion, No dyspnea at rest, No hemoptysis Cardiac: No chest pain, No orthopnea, No PND, No edema, No claudication, No palpitations Abdomen: No pain, No nausea, No vomiting, No diarrhea, No constipation Musculoskeletal: + joint pain (right hip pain is much better), No muscle pain, No swelling, No calf pain Male : No dysuria, No urinary frequency, No incontinence, No nocturia more than once/night, No slowing stream, No hematuria Neurologic: No memory loss, No paralysis, No weakness, No numbness/tingling, No vertigo, No balance problems Psychiatric: No depression symptoms, No anhedonism, No anxiety, No insomnia, No substance abuse Heme: No abnormal bleeding/bruising, No clotting problems, No swollen lymph nodes, No night sweats Endo: No fatigue, No excessive thirst, No excessive urination Skin: No rash, No itch, No new/changing skin lesions, No color change, No bleeding Objective Vital Signs Date Time Temp Pulse Resp B/P (MAP) Pulse Ox O2 Delivery O2 Flow Rate FiO2 09/17/17 07:15 Room Air 09/17/17 06:57 36.7 82 18 128/74 (92) 94 Room Air 09/17/17 03:50 36.8 84 16 126/75 (92) 97 CPAP 09/17/17 00:11 36.9 71 16 120/70 (87) 98 CPAP 09/16/17 19:45 Room Air 09/16/17 19:06 36.5 100 18 128/64 (85) 98 Room Air 09/16/17 15:16 36.4 94 17 117/76 (90) 97 Nasal Cannula 2.0 09/16/17 14:20 91 20 114/79 (91) 97 Nasal Cannula 2.0 09/16/17 13:14 97 17 112/71 (85) 98 Nasal Cannula 2.0 09/16/17 12:49 106 19 121/71 (88) 95 Nasal Cannula 2.0 09/16/17 12:05 Nasal Cannula 2.0 09/16/17 12:05 36.8 97 16 116/68 (84) 97 Nasal Cannula 2.0 09/16/17 12:05 97 Nasal Cannula 2.0 09/16/17 11:53 37.2 09/16/17 11:51 93 21 09/16/17 11:51 94 21 92 09/16/17 11:46 101 29 09/16/17 11:46 101 29 110/68 97 09/16/17 11:41 98 16 96 09/16/17 11:41 98 16 09/16/17 11:40 97 21 09/16/17 11:40 98 21 94 09/16/17 11:35 94 18 09/16/17 11:35 93 18 95 09/16/17 11:31 119/69 09/16/17 11:30 94 21 09/16/17 11:30 94 21 94 09/16/17 11:25 90 16 96 09/16/17 11:25 91 16 09/16/17 11:20 92 18 95 09/16/17 11:20 92 18 09/16/17 11:16 101/68 09/16/17 11:15 97 25 09/16/17 11:15 98 25 96 09/16/17 11:14 94 19 09/16/17 11:14 94 19 93 Physical Exam General Appearance: WD/WN, no apparent distress Eyes: normal inspection, PERRL, EOMI, sclerae normal ENT: normal ENT inspection, hearing grossly normal, pharynx normal Neck: supple, no adenopathy, thyroid normal, no JVD, no carotid bruits, trachea midline Respiratory/Chest: chest non-tender, lungs clear, normal breath sounds, no respiratory distress, no accessory muscle use Cardiovascular: regular rate, rhythm, no edema, no gallop, no JVD, no murmur Abdomen: normal bowel sounds, non tender, soft, no organomegaly, no pulsatile mass Extremities: normal inspection, no pedal edema, no calf tenderness, normal capillary refill, pelvis stable, + pertinent finding (right hip is in dress) Neurologic/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, no motor/sensory deficits, alert, normal mood/affect, oriented x 3, + abnormal cerebellar tests Skin: normal color, warm/dry, no rash Lymphatic: no adenopathy Laboratory Results Last 24 Hours Test 09/17/17 05:32 White Blood Count 9.58 K/uL Red Blood Count 3.83 M/uL Hemoglobin 11.6 g/dL Hematocrit 33.9 % Mean Corpuscular Volume 88.5 fL Mean Corpuscular Hemoglobin 30.3 pg Mean Corpuscular Hemoglobin Concent 34.2 g/dl Platelet Count 141 K/uL Mean Platelet Volume 9.6 fL Neutrophils (%) (Auto) 80.8 % Lymphocytes (%) (Auto) 8.9 % Monocytes (%) (Auto) 9.7 % Eosinophils (%) (Auto) 0.2 % Basophils (%) (Auto) 0.1 % Neutrophils # (Auto) 7.74 K/uL Lymphocytes # (Auto) 0.85 K/uL Monocytes # (Auto) 0.93 K/uL Eosinophils # (Auto) 0.02 K/uL Basophils # (Auto) 0.01 K/uL RDW Standard Deviation 43.1 fL RDW Coefficient of Variation 13.4 % Immature Granulocyte % (Auto) 0.3 % Immature Granulocyte # (Auto) 0.03 K/uL Sodium Level 134 mmol/L Potassium Level 4.2 mmol/L Chloride Level 101 mmol/L Carbon Dioxide Level 26 mmol/L Anion Gap 7.0 mmol/L Blood Urea Nitrogen 22 mg/dl Creatinine 1.23 mg/dl Est Creatinine Clear Calc Drug Dose 60.6 ml/min Estimated GFR () 66.1 Estimated GFR (Non- 57.1 BUN/Creatinine Ratio 18.2 Random Glucose 151 mg/dl Calcium Level 7.9 mg/dl Assessment and Plan 77 yo M with : S/p R AARON, DVT ppx with asa 81 mg BID, pain management and bowel regimen per primary team JH, continue cpap, pt has bring machine in hospital, advice continue to use during sleep HTN HLD BPH the above condition stable, continue current care. discussed with patient and patient's family , I answered all questions to their satisfactions. Continued [facility] stay due to: other (discharge plan per primary team) Discharge planning: home
[2017-09-17] MEDS ORDERED: OXYC1CAP5 PO (12:11)
[2017-09-17] MEDS ORDERED: ASPI81TA28 PO (12:11)
[2017-09-17] MEDS ORDERED: CLB/200 PO (12:11)
[2017-09-17] MEDS ORDERED: ACET-1256 PO (12:11)
--- NOTE | 2017-09-17 12:17 | Discharge Summary ---
Orthopedic Discharge Summary Admission Date/Reason Sep 16, 2017 at 06:30 Right Hip Osteoarthritis. Discharge Date/Disposition Sep 17, 2017 Home with services Diagnosis Principal Diagnosis: Right hip osteoarthritis Procedure(s) Performed Right total hip arthroplasty Medication Reconciliation Aspirin EC 81 mg PO BID x 30 days Celebrex 200 mg PO daily x 30 days 1refill Tylenol 1000mg PO q 6 hrs x 30 days 1 refill Oxycodone 5 mg tabs 1-2 PO q 4-6 hrs #30 See H&P for home meds. Admission Physical Exam As per Admitting History & Physical. Hospital Course Uneventful hospital stay. Pt states that he has only had Tylenol since surgery. Able to do SLRT. No pain. Ready to go home. Will Do in home PT/OT with [facility]. Will f/u in clinic in 2 wks. Advised to contact clinic with any questions or concerns. Discharge Instructions Please refer to the electronic Patient Visit Report (Discharge Instructions) for additional information.
[2017-09-17 12:50] VITALS: BP 128/74; PULSE 82; TEMP 36.7; O2SAT 94
== END 2017-09-17 13:46 | disposition home health service (06) | DRG 470 ==
LOC: C.ACU 05:05 → C.3E 06:30 → ENRESERV 11:45
PROVIDERS: ADMIT Orthopaedic Surgery; ATTEND Orthopaedic Surgery
PROC: 0SRA00A Replacement of Right Hip Joint, Acetabular Surface with Polyethylene Synthetic Substitute, Uncemented, Open Approach (ICD-10-PCS; principal; 2017-09-16 07:15)
DX: M16.11 Unilateral primary osteoarthritis, right hip (principal); G47.33 Obstructive sleep apnea (adult) (pediatric); N40.0 Benign prostatic hyperplasia without lower urinary tract symptoms; I10 Essential (primary) hypertension; E78.5 Hyperlipidemia, unspecified; Z87.442 Personal history of urinary calculi; Z79.82 Long term (current) use of aspirin; Z83.3 Family history of diabetes mellitus; Z87.891 Personal history of nicotine dependence

== ENCOUNTER → 2017-10-29 | Outpatient (CLI) | payer BC, OTHER ==
[~2017-10-29] MED LIST changes: +ACET-1256 PO; +ASPI81TA28 PO; +CLB/200 PO; +OXYC1CAP5 PO
== END | disposition home or self-care (01) ==
LOC: C.RDSM 11:22
PROVIDERS: ATTEND Orthopaedic Surgery
DX: Z98.890 Other specified postprocedural states (principal)

== ENCOUNTER → 2017-11-04 | Outpatient (CLI) | payer BC ==
--- NOTE | 2017-11-04 11:46 | DIAGNOSTIC IMAGING REPORT ---
L LOWER EXT JOINT WITHOUT CLINICAL HISTORY: LT KNEE ARTHRITIS pain TECHNIQUE: Multiaxial MRI acquisition COMPARISON STUDY: None FINDINGS: Compromised exam due to considerable patient motion. Moderate joint effusion. Soft tissue edematous change posterior to the knee. Bone marrow signal involving the medial femoral condyle as well as medial tibial plateau indicates contusion versus reactive change due to degenerative arthritic change. There is loss of articular surface of the central aspect medial femoral condyle as well as medial tibial plateau. The medial meniscus shows considerable substance loss at its mid to posterior aspect with a superimposed meniscal tear. The lateral joint compartment demonstrates mild degenerative change of the lateral meniscus. No evidence for well-defined acute meniscal tear. Moderate thinning of the meniscal surface of the lateral compartment. Considerable edematous change anterior cruciate ligament although it appears to be grossly intact. Posterior cruciate ligament is unremarkable. There are findings of mild chondromalacia patella. There is a small focus of articular surface loss of the mid patellar surface. This is approximately 5 x 6 mm in maximum dimension. Collateral ligaments structures appear to be intact. IMPRESSION: 1. Considerable degenerative change of all major structures of the medial joint compartment the knee. 2. Loss of articular surface of the mid and lateral aspects of the medial femoral condyle and medial tibial plateau, as well as a tear with substance loss of the mid and posterior horns of the medial meniscus. 3. Mild degenerative changes lateral joint compartment. 4. Moderate degenerative change patellofemoral joint with a small focus of articular surface loss and/or chondromalacia of the mid patellar articulating surface region. 5. Joint effusion with generalized surrounding soft tissue edematous change. 6. Nonspecific edematous change anterior cruciate ligament. The above report was generated using voice recognition software. It may contain grammatical, syntax or spelling errors. Electronically signed by: Corby Desai M.D. 11/04/2017 11:45 AM Dictated Date/Time: 11/04/2017 11:36 AM
== END | disposition home or self-care (01) ==
LOC: C.MRI 09:36
PROVIDERS: ATTEND Orthopaedic Surgery
DX: M17.12 Unilateral primary osteoarthritis, left knee (principal); M25.462 Effusion, left knee; R60.0 Localized edema

== ENCOUNTER → 2017-11-12 | Outpatient (CLI) | payer BC ==
[~2017-11-12] MED LIST changes: +AMOX500C3 PO
--- NOTE | 2017-11-12 15:35 | DIAGNOSTIC IMAGING REPORT ---
L KNEE 1 OR 2 VIEWS CLINICAL HISTORY: LEFT KNEE DJD/PRE OP TESTING COMPARISON STUDY: Left knee radiographs July 02, 2017 and MRI of the left knee November 04, 2017. FINDINGS: Alignment of the left knee is anatomic. There is a large left knee joint effusion. There is osteophytosis within the medial compartment with subchondral sclerosis and lucency of the medial femoral condyle. No acute fracture or suspicious lesion is present. IMPRESSION: 1. No acute fracture. 2. Medial compartment osteoarthritis of the left knee, better depicted on recent MRI. 3. Large left knee joint effusion. Electronically signed by: Martin Gonzalez M.D. 11/12/2017 3:33 PM Dictated Date/Time: 11/12/2017 3:32 PM
== END | disposition home or self-care (01) ==
LOC: C.RDSM 15:10
PROVIDERS: ATTEND Physician Assistant
DX: Z01.818 Encounter for other preprocedural examination (principal); M17.12 Unilateral primary osteoarthritis, left knee; M25.462 Effusion, left knee

== ENCOUNTER → 2017-11-18 | Outpatient (CLI) | payer BC, OTHER ==
[~2017-11-18] MED LIST changes: -ASPI-461 PO; -OXYC1CAP5 PO; +OXYC1TAB3 PO; +RXC5 PO; -TAMS0.4C38 PO
== END | disposition home or self-care (01) ==
LOC: C.MAMM 10:17
PROVIDERS: ATTEND Family Medicine
DX: M85.80 Other specified disorders of bone density and structure, unspecified site (principal)

== ENCOUNTER 2017-11-25 05:09 | Inpatient (IN) | payer BC, OTHER ==
[2017-11-16 11:44] VITALS: Ht 177.8 cm; Wt 100.3 kg
--- NOTE | 2017-11-16 12:17 | PAT Medication Instructions ---
Service Date Nov 16, 2017. Current Home Medication List Amoxicillin (Amoxil), 5 TAB PO UD PRN for RN Aspirin (Aspirin), 81 MG PO QPM Aspirin (Aspirin Ec), 81 MG PO QPM Cinnamon (Cinnamon), 500 MG PO BID Finasteride (Proscar), 5 MG PO QAM Fish Oil (Falls Of Rough-3), 1 CAP PO QAM Udgbptjwuxv-Vctssefasss-Poa C- (Glucosamine Chondroitin), 1 TAB PO BID Loratadine (Claritin), 10 MG PO QPM Multiple Vitamins W/ Minerals (Multi For Him), 1 CAP PO QAM Naproxen (Aleve), 220 MG PO BID Quinapril Hcl (Accupril), 10 MG PO QAM Simvastatin (Zocor), 20 MG PO QPM Medication Instructions For Your Scheduled Surgery Amoxicillin (Amoxil), 5 TAB PO UD PRN for RN Prior to dental procedures - Hold the following medications 2 weeks prior to surgery: Cinnamon (Cinnamon), 500 MG PO BID Fish Oil (Falls Of Rough-3), 1 CAP PO QAM Hyryucbwyqn-Bwhczckmyxy-Yot C- (Glucosamine Chondroitin), 1 TAB PO BID - Per surgeon instructions: Naproxen (Aleve), 220 MG PO BID - Hold the following medications the morning of surgery: Quinapril Hcl (Accupril), 10 MG PO QAM Finasteride (Proscar), 5 MG PO QAM Multiple Vitamins W/ Minerals (Multi For Him), 1 CAP PO QAM - Take the following medications as scheduled the night before surgery: Aspirin (Aspirin Ec), 81 MG PO QPM Simvastatin (Zocor), 20 MG PO QPM Loratadine (Claritin), 10 MG PO QPM If you have any questions please call us at [phone] or [phone] or [phone]
--- NOTE | 2017-11-16 12:48 | History and Physical ---
History & Physical Date of Service Nov 16, 2017. History & Physical CHIEF COMPLAINT: Left knee pain. HISTORY OF PRESENT ILLNESS: This 77-year-old male presents to clinic today for his preoperative history and physical. The patient states that he has had increased pain in his left knee since undergoing a right total hip arthroplasty back on September 16. He states that he has significant gait disturbance, feels like he is very unstable on his right knee and would like to proceed with a total knee arthroplasty. PAST SURGICAL HISTORY: Colonoscopy x2, mole excision from face and back, and right total hip arthroplasty. PAST MEDICAL HISTORY: Sleep apnea, benign prostatic hypertrophy, prediabetes, hepatic steatosis, hypertension, hyperlipidemia and a history of renal calculi. FAMILY HISTORY: Brother, diabetes and myocardial infarction. Father, diabetes and myocardial infarction. Mother, diabetes and stroke. ALLERGIES: The patient has no known drug allergies. HE DOES HAVE ENVIRONMENTAL ALLERGIES TO POLLEN. CURRENT MEDICATIONS: Aleve 220 mg 1 tab twice daily as needed for pain, aspirin 81 mg oral tablet 1 tab daily, cinnamon 500 mg oral tablet 2 caps daily , finasteride 5 mg oral tablet 1 tab daily, fish oil oral capsule 1200 mg daily , glucosamine chondroitin MSM complex unknown dosage twice daily, loratadine 10 mg oral tablet 1 tab daily as needed for allergy relief, multivitamin unknown dosage 1 tab daily, quinapril 10 mg oral tablet 1 tab daily, simvastatin 20 mg oral tablet 1 tab at bedtime and tamsulosin 0.4 mg oral capsule 2 caps daily. SOCIAL HISTORY: The patient denies history of smoking, alcohol or illicit drug use. PHYSICAL EXAMINATION: Skin: The patient's skin is normal in appearance. No open skin lesions or discharge. Eyes: Pupils are equal and react to light and accommodating. Extraocular movements are intact. Throat: Posterior oropharynx clear without absence of edema, erythema or exudate. Cardiovascular exam: The patient has a regular rate and rhythm, no murmurs, gallops appreciated. Lungs: Auscultation of lung de la o reveals clear breath sounds throughout with no wheezing, rales or rhonchi. Abdomen: Mildly obese, nondistended, nontender with normoactive bowel sounds throughout. Extremities: Left knee, the patient experiences significant tenderness to palpation over the medial joint space. Has crepitation with active passive range of motion, a very mild palpable effusion. Range of motion is 6 degrees of extension and 124 degrees of flexion. There is no varus or valgus laxity, negative Chandrika test. The patient's calf is soft and supple and he is neurovascularly intact in the left lower extremity. Neurological exam: Cranial nerves 2-12 are intact with no motor or sensory deficit. Psychological/general exam: The patient is alert and oriented x3 with proper grooming and hygiene. DIAGNOSIS: Left knee arthritis. PROCEDURE: Left total knee arthroplasty. RADIOGRAPHIC IMAGING: MRI of the left knee done November 04 demonstrates significant chondral loss in the medial compartment with bony edema both in the medial femoral condyle and the medial tibial plateau. The patient has degenerative tear with sepsis, loss of posterior horn of medial meniscus and moderate degenerative changes noted in the patellofemoral joint as well as the lateral compartment. PLAN: The patient is scheduled to undergo this procedure with Dr. Bernard Olivera at the [facility] on 11/25/2017. Risks and complications of the surgery such as infection, bleeding, pain, scarring, nerve and blood vessel damage, weakness, wound problems, stiffness, incomplete relief of symptoms, heart attack, stroke, , hardware failure, loosening, wear, fracture, blood clots and embolism were explained to patient by Dr. Olivera at his visit on November 10. The patient understood and agreed and informed consent to perform the procedure was obtained. At this point, there was no indication for any preoperative medical clearance or EKG due to his recent surgery. However, we will need to repeat a CBC with differential, a complete metabolic panel, PT/INR, PTT, urine screening culture, nasal swab for MRSA and a hemoglobin A1c. The patient is scheduled for his preanesthesia clearance testing on Wednesday at the hospital. He states that he will obtain necessary blood work at that time. He states that he has a walker at home and he will bring it with him on the day of surgery. I advised him that I would prescribe him with a prescription for pain medicine and physical therapy upon discharge from the hospital. He states that he will most likely do his physical therapy at home for 2 weeks with [facility] and then continue for 4 additional weeks at [facility] in [place], [place]. The patient also already understands about the use of antibiotics for dental procedures after joints replacement. He plans on attending a lecture involving joint replacement at the hospital. He was given renewal for his previous handicap placard and he understands instructions about total knee precautions after replacement surgery. The patient and his verbalized understanding of all information provided at today's visit and thanked us for the care they received and state if they have questions or concerns that should arise prior to their scheduled surgery date, he will contact the clinic and I advised them that they will see me at the 2-week postoperative followup visit.
[2017-11-16 13:40] LABS: BASO % 0.5 %; BASO ABS # 0.03 K/uL (0-0.2); EOS % 3.8 %; EOS ABS # 0.21 K/uL (0-0.5); HEMATOCRIT 40.5 % (42-52); HEMOGLOBIN 14.3 g/dL (14.0-18.0); IG# 0.02 K/uL (0.00-0.02); LYMPH % 28.5 %; LYMPH ABS # 1.57 K/uL (1.2-3.4); MEAN CELL VOLUME 86.4 fL (80-100); MEAN CORPUSCULAR HEMOGLOBIN 30.5 pg (25-34); MEAN CORPUSCULAR HGB CONC 35.3 g/dl (32-36); MEAN PLATELET VOLUME 10.1 fL (7.4-10.4); MONO % 9.5 %; MONO ABS # 0.52 K/uL (0.11-0.59); NEUT % 57.3 %; NEUT ABS # 3.15 K/uL (1.4-6.5); PLATELET COUNT 171 K/uL (130-400)
[2017-11-16 13:53] LABS: PTT PATIENT 27.7 SECONDS (21.0-31.0)
[2017-11-16 13:57] LABS: HEMOGLOBIN A1C 5.6 % (4.5-5.6)
[2017-11-16 14:26] LABS: ALBUMIN 4.1 gm/dl (3.4-5.0); CALCIUM 8.7 mg/dl (8.5-10.1); CREATININE 1.08 mg/dl (0.60-1.40); POTASSIUM 4.1 mmol/L (3.5-5.1)
[2017-11-16 14:29] LABS: TOTAL PROTEIN 7.6 gm/dl (6.4-8.2)
[~2017-11-25] VITALS: Ht 177.8 cm; Wt 100.3 kg
[2017-11-25] VITALS (10 sets, daily range): BP systolic 100–145; BP diastolic 56–95; PULSE 68–94; TEMP 36.3–37; O2SAT 93–98
[~2017-11-25 05:09] MED LIST changes: -ACET-1256 PO; -CLB/200 PO; -OXYC1TAB3 PO; -RXC5 PO
[2017-11-25] MEDS ORDERED: TRAMADOL HCL 50 MG TAB PO SCH (06:00)
[2017-11-25] MEDS ORDERED: LACTATED RINGER'S 1000ML IV SCH (06:00)
[2017-11-25] MEDS ORDERED: CeleBREX 200 MG CAP PO SCH (06:00)
[2017-11-25] MEDS ORDERED: SCOPOLAMINE 1.5 MG TDSY TD SCH (06:00)
[2017-11-25] MEDS ORDERED: DEXAMETHASONE 4 MG TAB PO SCH (06:00)
[2017-11-25] MEDS ORDERED: ACETAMINOPHEN 500 MG TAB PO SCH (06:00)
[2017-11-25] MEDS ORDERED: LACTATED RINGER'S 1000ML 1,000 ML IV SCH (06:00)
[2017-11-25] MEDS ORDERED: ROPIVACAINE 5MG/ML 30 ML 150 MG, BUPIVACAINE/EPINEPHR 0.5% MPF 30 ML, KETOROLAC TROMETH... INFIL SCH ×7 (06:00)
[2017-11-25] MEDS ORDERED: CEFAZOLIN 2000MG IV PUSH 15 ML IV SCH (06:00)
[2017-11-25] MEDS ORDERED: FAMOTIDINE 20 MG TAB PO SCH (06:00)
[2017-11-25] MEDS ORDERED: BUPIVACAINE 0.5 % 5 MG/1 ML PF 10ML VIAL ONE (06:29)
[2017-11-25] MEDS ORDERED: ROPIVACAINE 0.5% 5 MG/ML 30 ML VIAL ONE (06:29)
[2017-11-25] MEDS ORDERED: MIDAZOLAM HCL 1 MG/ML 2ML VIAL ONE (06:36)
[2017-11-25] MEDS ORDERED: PROPOFOL IV EMULSION 10 MG/ML 20 ML VIAL IV ONE ×2 (06:36→08:14)
[2017-11-25] MEDS ORDERED: LIDOCAINE HCL 2% 2 ML VIAL (20MG/ML) ONE (06:36)
[2017-11-25] MEDS ORDERED: FENTANYL CITRATE INJ 50 MCG/1 ML 2 ML VIAL ONE (06:37)
[2017-11-25] MEDS: TRANEXAMIC ACID INJ 1,000 MG x 2 Bags IV SCH ×4 (06:50→09:05)
[2017-11-25] MEDS ORDERED: ORTHO JOINT ANESTHETIC ONE (06:55)
[2017-11-25] MEDS ORDERED: POVIDONE-IODINE OP SOLN 30 ML BTL ONE (06:55)
[2017-11-25] MEDS ORDERED: DEXAMETHASONE SOD INJ 4 MG/ML VIAL ONE (07:26)
[2017-11-25] MEDS ORDERED: ONDANSETRON INJ 2 MG/ML 2 ML VIAL ONE (07:26)
[2017-11-25] MEDS ORDERED: EpHEDrine SULFATE INJ 50 MG/ML AMP ONE (07:44)
[2017-11-25] MEDS ORDERED: MEPERIDINE HCL 25 MG/ML CARP IV PRN (08:15)
[2017-11-25] MEDS ORDERED: HYDROmorphone INJ 0.5 MG/0.5 ML SYR IV PRN (08:15)
[2017-11-25] MEDS ORDERED: FENTANYL CITRATE INJ 50 MCG/1 ML 2 ML VIAL IV PRN (08:15)
[2017-11-25] MEDS ORDERED: ATROPINE SULFATE 0.1 MG/ML 5ML SYR IV PRN (08:15)
[2017-11-25] MEDS ORDERED: LABETALOL HCL IV 5 MG/ML 20ML IV PRN (08:15)
[2017-11-25] MEDS ORDERED: EpHEDrine SULFATE INJ 50 MG/ML AMP IV PRN (08:15)
[2017-11-25] MEDS ORDERED: ONDANSETRON INJ 2 MG/ML 2 ML VIAL IV PRN ×2 (08:15→09:45)
--- NOTE | 2017-11-25 09:16 | [facility] Post Operative Brief Note ---
Immediate Operative Summary Operative Date Nov 25, 2017. Pre-Operative Diagnosis Left Knee Arthritis Post-Operative Diagnosis Left Knee Arthritis Procedure(s) Performed Left Total Knee Arthroplasty Surgeon Dr. Bernard Jacob Grinding Machine Operator Automatic Surgeon(s) Severino Barillas PA-C Estimated Blood Loss 100ML Findings Consistent with Post-Op Diagnosis Fluids (cc crystalloids) 1500 cc Specimens Permanent Specimen: A.) Left Knee Bone and Tissue Drains None Anesthesia Type MAC Spinal Regional Complication(s) none Disposition Accompanied Pt To Recover: no Disposition: Recovery Room / PACU
--- NOTE | 2017-11-25 09:37 | [facility] Operative Report ---
Operative Report Operative Date Nov 25, 2017. Pre-Operative Diagnosis Left Knee Arthritis Post-Operative Diagnosis Left Knee Arthritis Procedure(s) Performed Left Total Knee Arthroplasty Surgeon Dr. Bernard Jacob [employer] Surgeon(s) Severino Barillas PA-C Estimated Blood Loss 100ML Fluids 1500 cc Specimens Permanent Specimen: A.) Left Knee Bone and Tissue Drains None Anesthesia Type MAC Spinal Regional Complication(s) none Disposition no Recovery Room / PACU Description of Procedure I was present during entire procedure and performed surface wound closure. See Dr. Olivera procedure note for specifics. I attest to the content of the Intraoperative Record and any orders documented therein. Any exceptions are noted below.
[2017-11-25] MEDS ORDERED: METOCLOPRAMIDE HCL INJ 5 MG/ML 2 ML VIAL IV PRN (09:45)
[2017-11-25] MEDS ORDERED: TAMSULOSIN HCL 0.4 MG CAP PO PRN (09:45)
[2017-11-25] MEDS ORDERED: DiphenhydrAMINE HCL 50 MG/ML VIAL IV PRN (09:45)
[2017-11-25] MEDS ORDERED: MAGNESIUM HYDROXIDE SUSP 30 ML UDC PO PRN (09:45)
[2017-11-25] MEDS ORDERED: MoRPHine SULFATE 2 MG/ML CARP IV PRN (09:45)
[2017-11-25] MEDS ORDERED: ALUMINUM/MAGNESIUM/SIMETH (MAALOX MAX) 30 ML UDC PO PRN (09:45)
--- NOTE | 2017-11-25 10:11 | DIAGNOSTIC IMAGING REPORT ---
L KNEE 2 VIEWS ROUTINE CLINICAL HISTORY: Osteoarthritis. Postoperative study COMPARISON: 11/12/2017 DISCUSSION: There are postsurgical changes of a total left knee arthroplasty and patellar resurfacing. Air within soft tissues, is consistent with postsurgical change IMPRESSION: Postsurgical changes of a total left knee arthroplasty. Electronically signed by: Stephen Noel M.D. 11/25/2017 10:09 AM Dictated Date/Time: 11/25/2017 10:08 AM
[2017-11-25] MEDS: SODIUM CHLORIDE 0.9% 1000ML 1,000 ML IV SCH ×2 (10:50→20:55)
--- NOTE | 2017-11-25 10:54 | OPERATIVE REPORT ---
DATE OF OPERATION: 11/25/2017 PREOPERATIVE DIAGNOSIS: Left knee osteoarthritis. POSTOPERATIVE DIAGNOSIS: Same. OPERATION PERFORMED: Left total knee arthroplasty. SURGEON: Dr. Bernard Olivera. PUBLIC RELATIONS ASSOCIATE: Severino Ingram PA-C. ESTIMATED BLOOD LOSS: 100 mL IV FLUIDS: 1500 mL of lactated Ringer's. SPECIMENS: Left knee bone and soft tissue contents. COMPLICATIONS: None. IMPLANTS: 1. DePuy sigma posterior stabilized cemented size 4 left femur. 2. DePuy size 4 tibial tray cemented with MBT Keel. 3. Size 4 rotating platform insert 12.5 mm thickness. 4. Oval domed patella 41 mm. INDICATIONS: Mr. Jarrell is a 77-year-old male who has had left knee pain for the past several years that has been worsening in the past few months. He works at [employer] where he is on his feet throughout the day. He recently had total hip arthroplasty on the right side and has not been able to go back to work due to his left knee. We have attempted conservative management with corticosteroid injection and activity modification and oral medication. Unfortunately, these have failed to relieve his pain. X-rays and MRI demonstrate medial compartment osteoarthrosis with significant amount of bone edema in the medial femoral condyle as well as the medial proximal tibia. I had a long discussion with him about risks and benefits of surgery, alternatives to surgery and expected outcomes. After reviewing all these, he elected to proceed with surgery. All questions were answered. Informed consent was signed. OPERATIVE FINDINGS: End-stage [id number] arthritis was noted predominantly affecting the medial compartment of the knee but also involving the patellofemoral and lateral compartment. A posterior stabilized cemented total knee arthroplasty was performed using the rotating platform system. DESCRIPTION OF OPERATION: The patient was identified in the preoperative holding area where his surgical site was marked. He was given adductor canal block and a spinal anesthetic, then brought back to main operating room where he was placed on the operating room table and placed under sedation. All bony prominences were padded. Exam under anesthesia was performed demonstrating approximately 10-degree flexion contracture with knee flexion up to only approximately 115 degrees. The limb was then prepped and draped in the normal sterile fashion. Prior to incision, a multidisciplinary timeout was called. All in the room were in agreement. We began by exsanguinating the limb with an Esmarch bandage. The tourniquet was inflated to 250 mmHg. A midline incision was made approximately 16 cm in length centered over the patella and 1 cm medial to the tibial tubercle. We dissected down through subcutaneous tissue to the level of fascia. Full-thickness skin flaps were raised to allow us to richard the patella. We then incised just medial to the patellar tendon through the fat pad and into the knee, carrying this down onto the proximal medial tibia, just medial to the tibial tubercle. Curved Maharaj scissors were used to extend the arthrotomy around the patella and up into the quadriceps tendon. Contents of the suprapatellar pouch were excised with electrocautery. A medial release was then performed using electrocautery. The patella was everted and clamped. It measured a thickness of 25 mm. Approximately 11 mm of the patella was removed with a saw. We then sized him for a size 41 patella. The 3 button holes were drilled and a trial was placed. He came back with a size 26 mm thickness which I was very happy with. The trial was removed, the patella was everted and the knee was flexed up to 90. Next, the notch osteophytes were removed and the intramedullary drill guide was placed and a distal femoral cut was made with 5 degrees of valgus for resection of 12 mm. The ACL and PCL were then removed. The tibia was subluxated forward. The extramedullary cutting guide was placed for a 12 mm thickness cut off the less involved lateral tibial plateau, set at posterior slope of 4 degrees and 2 clicks medial at the ankle. Our tibial resection was made without difficulty. He was then brought out in full extension and we were able to place the 12.5 mm extension block without difficulty. Next, the medial meniscus was excised. The femur was flexed back up and the femur was sized to a size 5. The 4-in-1 cutting block was placed at 3 degrees of external rotation. Four cuts were made. We then placed the flexion block. He was still somewhat tight in flexion with the 12.5 cutting block. I, therefore, elected to downsize into size 4. The 4-in-1 cutting jig for a size 4 was placed and the cuts were once again performed and now he fit nicely with a size 12.5 flexion cutting block. At this point, excess osteophytes were removed. The box cutting jig was placed slightly laterally. The box cut was made. The femoral trial was then impacted down position and fit nicely on the cut surfaces. His tibia was sized to a size 4 and this was pinned onto the tibia. We trialed him with a 12.5 mm thickness poly and he had excellent stability throughout a full range of motion to varus and valgus, reached full extension and flexed up to 135 degrees. We were happy with these trial components. The trials were then removed. The tibia was prepared for the size to accept the size 4 tray. The cut surfaces were then washed while the cement was prepared on the back table. Once the cement was ready, the femur was cemented on first. Excess cement was removed. The femoral component was then protected and the tibia was subluxated forward and the tibial component was placed without difficulty. The knee was then brought into full extension and the patella was cemented and clamped. Betadine was placed in the wound and was allowed to soak to decrease the chance of postoperative infection while the cement was curing. Once cement was cured, the tourniquet was let down and hemostasis was achieved. The knee was once again trialed and the stability was unchanged from prior. We, therefore, opened up the 12.5 mm thickness real polyethylene and placed this after cleaning the tibial platform. At this point, the wound was copiously irrigated with normal saline. The arthrotomy was then closed with running #1 Ethibond through the quadriceps and patellar tendon with 0 Vicryl sutures along the medial aspect of the patella in [id number] fashion. The deep dermal layer was closed with a running 0 V-Loc. The skin was closed with 3-0 Monocryl in a subcuticular fashion. Steri-Strips applied, followed by sterile dressing. The patient had his sedation lifted and was transferred to the recovery room in stable condition. POSTOPERATIVE COURSE: The patient will be admitted overnight. He will receive 24 hours of perioperative antibiotics. He will work with physical therapy today and tomorrow. Discharge plan will be home tomorrow. He will be on aspirin for DVT prophylaxis. I attest to the content of the Intraoperative Record and any orders documented therein. Any exceptions are noted below. CATINA
--- NOTE | 2017-11-25 10:56 | Anesthesiology Progress Note ---
Anesthesia Post Op Note Date & Time Nov 25, 2017 at 10:56 Vital Signs Pain Intensity: 0 Vital Signs Past 12 Hours Date Time Temp Pulse Resp B/P (MAP) Pulse Ox O2 Delivery O2 Flow Rate FiO2 11/25/17 10:31 95 Nasal Cannula 2.0 11/25/17 10:30 95 Nasal Cannula 2.0 11/25/17 10:28 36.5 80 15 128/78 (95) 94 Nasal Cannula 2.0 11/25/17 10:10 36.8 77 15 131/73 94 Nasal Cannula 2 11/25/17 10:00 36.8 85 16 144/91 98 Nasal Cannula 2 11/25/17 09:50 81 16 139/88 100 Oxymask 10 11/25/17 09:40 83 16 140/87 99 Oxymask 10 11/25/17 09:34 36.8 82 16 130/82 100 Oxymask 10 11/25/17 05:57 36.5 74 74 145/95 95 Room Air Notes Mental Status: alert / awake / arousable, participated in evaluation Pt Amnestic to Procedure: Yes Nausea / Vomiting: adequately controlled Pain: adequately controlled Airway Patency, RR, SpO2: stable & adequate BP & HR: stable & adequate Hydration State: stable & adequate Neuraxial Anesthesia: was administered, sensory block is resolving Anesthetic Complications: no major complications apparent
[2017-11-25] MEDS ORDERED: MoRPHine SULFATE 4 MG/ML 1 ML CARP\\VIAL IV PRN (11:30)
[2017-11-25] MEDS: FERROUS GLUCONATE 324 MG TAB PO SCH ×2 (12:47→18:01)
[2017-11-25] MEDS: ACETAMINOPHEN 500 MG TAB PO SCH ×2 (13:55→20:55)
[2017-11-25] MEDS ORDERED: TRANEXAMIC ACID INJ 1,000 MG in SODIUM CHLORIDE 0.9% 100ML 100 ML IV SCH (15:30)
[2017-11-25] MEDS: CEFAZOLIN IV 2,000 MG in SYRINGE 0 ML IV SCH ×2 (15:46→23:48)
[2017-11-25] MEDS: CHECK SCOPOLAMINE PATCH PLACEMENT SCH ×2 (15:47→23:48)
[2017-11-25] MEDS: OXYCODONE HCL IR 5 MG TAB (IMMEDIATE RELEASE) PO PRN ×2 (18:47→23:48)
[2017-11-25] MEDS: DOCUSATE SODIUM 100 MG CAP PO SCH (20:54)
[2017-11-25] MEDS: CeleBREX 200 MG CAP PO SCH (20:55)
[2017-11-25] MEDS: ASPIRIN 81 MG ECTAB PO SCH (20:55)
[2017-11-25] MEDS ORDERED: SENNA 8.6 MG TAB PO SCH (21:00)
[2017-11-25] MEDS ORDERED: LORATADINE 10 MG TAB PO SCH (21:00)
[2017-11-25] MEDS ORDERED: SIMVASTATIN 20 MG TAB PO SCH (21:00)
--- NOTE | 2017-11-25 22:50 | Progress Note ---
Subjective Date of Service: Nov 25, 2017. Objective Vital Signs Date Time Temp Pulse Resp B/P (MAP) Pulse Ox O2 Delivery O2 Flow Rate FiO2 11/25/17 20:30 36.3 76 17 102/56 (71) 93 Room Air 11/25/17 16:03 37.0 77 18 117/71 (86) 97 Room Air 2.0 11/25/17 15:45 Nasal Cannula 2.0 11/25/17 13:30 94 16 100/67 (78) 97 Nasal Cannula 2.0 11/25/17 12:29 91 18 133/77 (95) 97 Nasal Cannula 2.0 11/25/17 11:30 92 16 127/82 (97) 95 Nasal Cannula 2.0 11/25/17 11:00 89 18 125/84 (98) 98 Nasal Cannula 2.0 11/25/17 10:31 95 Nasal Cannula 2.0 11/25/17 10:30 95 Nasal Cannula 2.0 11/25/17 10:28 36.5 80 15 128/78 (95) 94 Nasal Cannula 2.0 11/25/17 10:10 36.8 77 15 131/73 94 Nasal Cannula 2 11/25/17 10:00 36.8 85 16 144/91 98 Nasal Cannula 2 11/25/17 09:50 81 16 139/88 100 Oxymask 10 11/25/17 09:40 83 16 140/87 99 Oxymask 10 11/25/17 09:34 36.8 82 16 130/82 100 Oxymask 10 11/25/17 05:57 36.5 74 74 145/95 95 Room Air Laboratory Results Last 24 Hours Test 11/25/17 05:35 11/25/17 09:59 Bedside Glucose 107 mg/dl 129 mg/dl
[2017-11-26 03:50] VITALS: BP 122/70; PULSE 65; TEMP 36.9; O2SAT 97
[2017-11-26] MEDS: ACETAMINOPHEN 500 MG TAB PO SCH (05:40)
[2017-11-26] MEDS: SODIUM CHLORIDE 0.9% 1000ML 1,000 ML IV SCH (05:40)
[2017-11-26 07:23] LABS: HEMATOCRIT 33.5 % (42-52); HEMOGLOBIN 11.6 g/dL (14.0-18.0); MEAN CELL VOLUME 86.8 fL (80-100); MEAN CORPUSCULAR HEMOGLOBIN 30.1 pg (25-34); MEAN CORPUSCULAR HGB CONC 34.6 g/dl (32-36); MEAN PLATELET VOLUME 9.8 fL (7.4-10.4); PLATELET COUNT 143 K/uL (130-400); RED CELL DISTRIBUTION WIDTH SD 44.1 fL (36.4-46.3); WHITE BLOOD COUNT 10.68 K/uL (4.8-10.8)
[2017-11-26 07:26] VITALS: BP 106/66; PULSE 65; TEMP 36.6; O2SAT 91
[2017-11-26] MEDS ORDERED: DEXAMETHASONE INJ 10 MG in SYRINGE 0 ML IV ONE (07:30)
[2017-11-26 07:46] LABS: CREATININE 1.27 mg/dl (0.60-1.40); POTASSIUM 4.4 mmol/L (3.5-5.1)
--- NOTE | 2017-11-26 08:24 | Orthopedic Progress Note ---
Orthopedic Progress Note Date of Service Nov 26, 2017. Subjective Post OP Day: 1 Reports: feeling well, pain controlled w PO medications, Denies: complaints, chest pain, SOB, nausea / vomiting, light headedness, calf pain, using WELDING SETTER Objective calves soft nontender, N/V intact, capillary refill less than 2 sec., dressing C /D/I, incision C/D/I, A&O x3, toes mobile, CMS intact Date Time Temp Pulse Resp B/P (MAP) Pulse Ox O2 Delivery O2 Flow Rate FiO2 11/26/17 07:30 Room Air 11/26/17 07:26 36.6 65 16 106/66 (79) 91 Room Air 11/26/17 03:50 36.9 65 16 122/70 (87) 97 CPAP 11/25/17 23:50 Room Air CPAP 11/25/17 23:05 36.9 68 18 106/62 (77) 95 Room Air 11/25/17 20:30 36.3 76 17 102/56 (71) 93 Room Air 11/25/17 16:03 37.0 77 18 117/71 (86) 97 Room Air 2.0 11/25/17 15:45 Nasal Cannula 2.0 11/25/17 13:30 94 16 100/67 (78) 97 Nasal Cannula 2.0 11/25/17 12:29 91 18 133/77 (95) 97 Nasal Cannula 2.0 11/25/17 11:30 92 16 127/82 (97) 95 Nasal Cannula 2.0 11/25/17 11:00 89 18 125/84 (98) 98 Nasal Cannula 2.0 11/25/17 10:31 95 Nasal Cannula 2.0 11/25/17 10:30 95 Nasal Cannula 2.0 11/25/17 10:28 36.5 80 15 128/78 (95) 94 Nasal Cannula 2.0 11/25/17 10:10 36.8 77 15 131/73 94 Nasal Cannula 2 11/25/17 10:00 36.8 85 16 144/91 98 Nasal Cannula 2 11/25/17 09:50 81 16 139/88 100 Oxymask 10 11/25/17 09:40 83 16 140/87 99 Oxymask 10 11/25/17 09:34 36.8 82 16 130/82 100 Oxymask 10 Laboratory Results 24 Hours: Test 11/26/17 06:45 Hematocrit 33.5 % Hemoglobin 11.6 g/dL Prothromb Time International Ratio 1.0 Prothrombin Time 10.0 SECONDS Assessment & Plan Assessment: Day 1 s/p Left total knee arthroplasty Plan: Total knee precautions Dressing clean and ABD applied Plan on discharge to home with [facility]/therapy PT/OT while in house PO pain meds TEDS and Aspirin for DVT prophylaxis Ice to operative site Use of immobilizer for first 48 hrs post op Walker assistance F/u at [facility] with DAVID Barillas PA-C in 2 wks. Discharge Planning Discharge Planning: home with home health Pain Management: Percocet, Celebrex, PO Tylenol DVT Prophylaxis: TEDs, ASA Therapy: Physical Therapy, Occupational Therapy
[2017-11-26] MEDS: FERROUS GLUCONATE 324 MG TAB PO SCH ×2 (08:28→12:28)
[2017-11-26] MEDS ORDERED: ACET-1256 PO ×2 (08:28)
[2017-11-26] MEDS ORDERED: RXC5 PO ×2 (08:28)
[2017-11-26] MEDS ORDERED: CLB/200 PO ×2 (08:28)
[2017-11-26] MEDS: DOCUSATE SODIUM 100 MG CAP PO SCH (08:30)
[2017-11-26] MEDS: CeleBREX 200 MG CAP PO SCH (08:30)
[2017-11-26] MEDS: CHECK SCOPOLAMINE PATCH PLACEMENT SCH (08:30)
[2017-11-26] MEDS: ASPIRIN 81 MG ECTAB PO SCH (08:30)
--- NOTE | 2017-11-26 08:30 | Discharge Instructions ---
Discharge Instructions Date of Service Nov 26, 2017. Admission Reason for Admission: Left Knee Arthritis Discharge Discharge Diagnosis / Problem: Left knee arthritis Discharge Goals Goal(s): Decrease discomfort Activity Recommendations Activity Limitations: as noted below Lifting Limitations: until after follow-up appointment Exercise/Sports Limitations: until after follow-up appointment May Resume Sexual Activity: when tolerated Shower/Bathe: tomorrow, keep incision dry Driving or Machine Use: No driving until cleared by medical laboratory specialist Weightbearing Status: Left weightbearing (as tolerated with use of walker and immobilizer for 1st 48 hrs post op) . Instructions / Follow-Up Instructions / Follow-Up Post-operative Instructions Dear Patient and Family/Friends, Before you are discharged from the hospital, it is important to know what to expect when you get home after surgery. To that end, we have created this sheet of discharge instructions which covers many commonly asked questions. Make sure you go through this sheet in its entirety with your nurse before you are discharged. Please note that we will go over the specifics of your surgery and recovery when you return for your first post-operative visit. Sincerely, Dr. Olivera Pain Expect to be in a fair amount of pain after surgery. Remember, our goal is not to eliminate your pain, but to make it tolerable. It is a good idea to stay ahead of your pain by taking the medications you were prescribed once you get home. Typically, the pain starts improving 3-7 days after surgery. You should start weaning off the narcotic pain medication (oxycodone, hydrocodone, hydromorphone, morphine) as soon as your pain improves. Please call our office if your pain is not adequately controlled. Ice Ice your operative site at least 5 times a day for 15-30 minutes at a time. Make sure you have a thin cloth between the ice or cooling unit and your skin to prevent lizama bite. This is especially important if you received a nerve block. Continue icing your operative site for the first 5-7 days after surgery , then as needed. Diet/Nausea/Vomiting Start by drinking clear liquids and eating crackers. If you can tolerate this, then you may resume your normal diet. If you feel nauseated or vomit, take Zofran/ondansetron (if prescribed). Please call our office if you have intractable nausea or vomiting, or, if after hours, you may go to the Emergency Room for help. Constipation Constipation is a common side effect of narcotic pain medication. If you have not had a bowel movement within 2 days after surgery, we recommend purchasing an over the counter laxative such as Milk of Magnesia, Dulcolax, or Miralax from a local pharmacy, and taking it as instructed. Call our clinic if any questions. Slings and Braces If you were placed in a sling or brace, it must be worn at all times, including sleep. You may remove your sling or brace for physical therapy, home exercises , and showering. The length of time you will be in your brace and range of motion restrictions depends on what surgery you had; these details will be reviewed at your first post-operative appointment. Nerve block The anesthesia team sometimes places a nerve block to help with post-operative pain control. This results in significant numbness and inability to move the extremity. The nerve block usually wears off in 8-12 hours, but sometimes can last up to 24 hours. Please call our office if you are still unable to move your extremity after 24 hours, unless you received a pain pump to take home. Nerve blocks typically wear off quickly, so start taking pain medication as soon as you start feeling soreness near your surgical site. Weight bearing and Range of Motion. Do not bear any weight through your operative extremity immediately after surgery. If you had upper extremity surgery, do not lift anything with that arm. If you are in a knee brace, keep it locked in place until your follow-up. We will discuss your weight bearing, range of motion, and lifting restrictions in detail at your first post-operative appointment. Continuous Passive Motion (CPM) Machine If you were prescribed a CPM machine, it will start after your first post- operative appointment, at which time we will give you instructions on the range of motion settings and duration of treatment Physical therapy You will be given a prescription for physical therapy or occupational therapy at your first post-operative appointment. Typically, patients start therapy within 1 week of surgery Wound care and showering We will inspect your wound at your first post-operative visit, and may do a dressing change at that time. Most patients will be in a water-proof dressing that is removed 14 days after surgery. It is normal to see some dried blood on the dressing. Do not remove your dressing, paper strips or sutures yourself unless you are given permission. Showering is allowed the day after surgery. Do not scrub or remove any dressings. The wound should not be submerged underwater (i.e. in a bathtub or pool) until 4 weeks after surgery PAOLA stockings If you were given white stockings, these are to be worn at all times except to shower (on both legs) for the first 2 weeks after surgery. Driving You may not drive while taking narcotic pain medication or while in a cast, splint, sling or brace. You, the patient, need to make the final determination about when you are safe to drive, however, the earliest you may consider driving after surgery is below: Hand/Wrist/Elbow Surgery: 3 days Shoulder Surgery: 2 weeks Hip,/Knee/Ankle Surgery: 4 weeks Fracture repair: 6 weeks Return to Work Your return to work depends on what surgery was done and what type of work you do. Please bring any paperwork your employer needs completed to your first post -operative visit. Also, bring a description of your job duties, as this helps us to understand what risks you may face at work. Travel Avoid long distance travel (greater than 1 hour) in airplanes and cars for the first 6 weeks after surgery. If you must travel, you need to have a Doppler ultrasound done before you travel to rule out a blood clot in your legs. Follow-up You should have a follow-up appointment already scheduled 1-2 days after surgery. If not, please contact our office to make this appointment before you leave the hospital. When to call the office It is normal to have swelling and bruising in the limb that was operated on. This will improve with time. It is also normal to have fevers for the first 2 days after surgery. Reasons you should call your doctor include: Uncontrolled pain; Nausea, vomiting, or constipation that does not improve with medication; Fevers over 101.5, chills, sweats; Drainage or bleeding from the wound; Foul odor; Spreading areas of redness; Any other concerns Current Hospital Diet Patient's current hospital diet: Regular Diet Discharge Diet Recommended Diet: Regular Diet Procedures Procedures Performed: Left Total Knee Arthroplasty Pending Studies Studies pending at discharge: no Laboratory Results Hemoglobin A1c Test 11/16/17 12:02 Range/Units Estimated Average Glucose 114 mg/dl Hemoglobin A1c 5.6 4.5-5.6 % Medical Emergencies . Who to Call and When: Medical Emergencies: If at any time you feel your situation is an emergency, please call 911 immediately. . Non-Emergent Contact Non-Emergency issues call your: Primary Care Provider Call Non-Emergent contact if: you have a fever, temperature is above 101.5, your pain is not controlled, your pain is worsening, wound has increased drainage, you have any medication questions . "Provider Documentation" section prepared by Severino Barillas. . [place] Drug Monitoring Program Search Results: patient reviewed within database, no issues identified, see additional documentation
--- NOTE | 2017-11-26 08:37 | Discharge Summary ---
Orthopedic Discharge Summary Admission Date/Reason Nov 25, 2017 at 06:40 Left Knee Arthritis. Discharge Date/Disposition Nov 26, 2017 Home with services Diagnosis Principal Diagnosis: Left knee arthritis Procedure(s) Performed Left total knee arthroplasty Medication Reconciliation See H&P for home meds Discharged with prescriptions as follow: 1. Oxycodone 5 mg 1 tabs po q 4-6 hrs prn pain #30 2. Tylenol 500 mg 2 tabs po q 6 hrs prn pain x 30 days with 1 refill 3. Celebrex 200 mg 1 tabs po dailly x 30 days with 1 refill *Will Increase daily 81 mg Aspirin to twice daily for 30 days for DVT prophylaxis* Admission Physical Exam As per Admitting History & Physical. Hospital Course Uneventful hospital stay. Patient states that he is doing well and would like to be discharged later today after PT/OT. Will have home health / therapy with [facility] for 2 wks then transition to outpatient PT at 2 wk post op f/u. Discharge Instructions Please refer to the electronic Patient Visit Report (Discharge Instructions) for additional information.
[2017-11-26] MEDS ORDERED: MULTIVITAMIN TAB PO SCH (09:00)
[2017-11-26] MEDS ORDERED: PANTOprazole SOD 40 MG TAB PO SCH (09:00)
[2017-11-26] MEDS ORDERED: ENALAPRIL MALEATE 10 MG TAB PO SCH (09:00)
[2017-11-26] MEDS ORDERED: FINASTERIDE 5 MG TAB PO SCH (09:00)
--- NOTE | 2017-11-26 09:35 | Anesthesiology Progress Note ---
Anesthesia Post Op Note Date & Time Nov 26, 2017 at 09:35 Vital Signs Vital Signs Past 12 Hours Date Time Temp Pulse Resp B/P (MAP) Pulse Ox O2 Delivery O2 Flow Rate FiO2 11/26/17 07:30 Room Air 11/26/17 07:26 36.6 65 16 106/66 (79) 91 Room Air 11/26/17 03:50 36.9 65 16 122/70 (87) 97 CPAP 11/25/17 23:50 Room Air CPAP 11/25/17 23:05 36.9 68 18 106/62 (77) 95 Room Air Notes Mental Status: alert / awake / arousable, participated in evaluation Pt Amnestic to Procedure: Yes Nausea / Vomiting: adequately controlled Pain: adequately controlled Airway Patency, RR, SpO2: stable & adequate BP & HR: stable & adequate Hydration State: stable & adequate Anesthetic Complications: no major complications apparent
[2017-11-26 09:54] VITALS: BP 138/78; PULSE 76; O2SAT 96
[2017-11-26] MEDS: OXYCODONE HCL IR 5 MG TAB (IMMEDIATE RELEASE) PO PRN (10:22)
[2017-11-26 11:14] VITALS: BP 106/66; PULSE 65; TEMP 36.6; O2SAT 91
[2017-11-27] MEDS ORDERED: CLB/200 PO (20:55)
[2017-11-27] MEDS ORDERED: OXYC1TAB3 PO (20:55)
[2017-11-27] MEDS ORDERED: ACET-1256 PO (20:55)
== END 2017-11-26 13:05 | disposition home health service (06) | DRG 470 ==
LOC: C.ACU 05:09 → C.3E 06:40 → ENRESERV 10:09
PROVIDERS: ADMIT Orthopaedic Surgery; ATTEND Orthopaedic Surgery
PROC: 0SRD0J9 Replacement of Left Knee Joint with Synthetic Substitute, Cemented, Open Approach (ICD-10-PCS; principal; 2017-11-25 07:15)
DX: M17.12 Unilateral primary osteoarthritis, left knee (principal); I10 Essential (primary) hypertension; E78.5 Hyperlipidemia, unspecified; N40.0 Benign prostatic hyperplasia without lower urinary tract symptoms; G47.33 Obstructive sleep apnea (adult) (pediatric); R73.03 Prediabetes; K76.0 Fatty (change of) liver, not elsewhere classified; E66.9 Obesity, unspecified; Z68.32 Body mass index [BMI] 32.0-32.9, adult; Z96.641 Presence of right artificial hip joint; Z87.442 Personal history of urinary calculi; Z85.828 Personal history of other malignant neoplasm of skin; Z79.82 Long term (current) use of aspirin; Z79.899 Other long term (current) drug therapy; Z83.3 Family history of diabetes mellitus; Z82.49 Family history of ischemic heart disease and other diseases of the circulatory system; Z82.3 Family history of stroke

== ENCOUNTER 2017-11-27 19:38 | Emergency (ER) | payer BC, OTHER ==
[~2017-11-27] VITALS: Ht 177.8 cm; Wt 96.0 kg
[~2017-11-27 19:38] MED LIST changes: +ACET-1256 PO; +CLB/200 PO; +RXC5 PO
[2017-11-27 19:41] VITALS: TEMP 36.6; Ht 177.8 cm; Wt 96.0 kg
--- NOTE | 2017-11-27 19:59 | EMERGENCY ROOM VISIT NOTE ---
History Report prepared by Solo: Juan Carlos Chow Under the Supervision of: Dr. Calos Mejia M.D. First contact with patient: 19:46 Chief Complaint: URINARY SYMPTOMS Stated Complaint: UNABLE TO GO TO THE BATHROOM History of Present Illness The patient is a 77 year old male who presents to the Emergency Room with complaints of inability to urinate beginning two days ago. The patient states that he had a left knee replacement done two days ago and was placed on OxyContin and Celebrex. He notes that since his knee replacement, he has not been able to urinate. He denies any fever, urinary burning, SOB, abdominal pain , melena, hematochezia, or CP. He reports that he also has a history of kidney stones, but states that his current symptoms do not feel similar to when he had kidney stones. The patient notes that he also had a hip replacement done two months ago. Source of History: patient Onset: two days ago Position: other (bladder) Quality: other (inability to urinate) Timing: constant Associated Symptoms: + chest pain, + SOB, No fevers Note: The patient states that he has not been able to urinate. He also denies any urinary burning. Review of Systems See HPI for pertinent positives and negatives. A total of ten systems were reviewed and were otherwise negative. Past Medical & Surgical Medical Problems: (1) Kidney stone (2) Nonalcoholic hepatosteatosis (3) JH (obstructive sleep apnea) (4) Osteoarthritis of left knee Surgical Problems: (1) History of left knee replacement (2) S/P total hip arthroplasty Family History No pertinent family history stated. Social History Smoking Status: Former Smoker Drug Use: none Marital Status: Housing Status: lives with family Occupation Status: retired Current/Historical Medications Scheduled Acetaminophen (Tylenol), 1,000 MG PO Q6 Aspirin (Aspirin Ec), 81 MG PO QPM Celecoxib (CeleBREX), 200 MG PO DAILY Cinnamon (Cinnamon), 500 MG PO BID Finasteride (Proscar), 5 MG PO QAM Fish Oil (Eek-3), 1 CAP PO QAM Dkmvqyhlrip-Tbasogtoked-Rqb C- (Glucosamine Chondroitin), 1 TAB PO BID Loratadine (Claritin), 10 MG PO QPM Multiple Vitamins W/ Minerals (Multi For Him), 1 CAP PO QAM Naproxen (Aleve), 220 MG PO BID Quinapril Hcl (Accupril), 10 MG PO QAM Simvastatin (Zocor), 20 MG PO QPM Scheduled PRN Amoxicillin (Amoxil), 5 TAB PO UD PRN for RN Oxycodone HCl (Oxycodone HCl), 5 MG PO q4-6 hrs PRN for Pain Allergies Coded Allergies: POLLEN (Verified Allergy, Intermediate, ITCHY EYES, STUFFY NOSE, 11/27/17) Physical Exam Vital Signs Date Time Temp Pulse Resp B/P (MAP) Pulse Ox O2 Delivery O2 Flow Rate FiO2 11/27/17 19:41 36.6 92 20 144/73 96 Room Air Physical Exam Physical Exam GENERAL: He is oriented to person, place, and time. He appears well-developed and well-nourished. He does not appear distressed. HENT: Exam performed. Head: Normocephalic and atraumatic. Right Ear: External ear normal. No mastoid tenderness. Left Ear: External ear normal. No mastoid tenderness. Mouth/Throat: The oropharynx is clear and moist. No trismus in the jaw. No dental abscesses or uvula swelling. No oropharyngeal exudate or tonsillar abscesses. EYES: Conjunctivae and EOM are normal. Pupils are equal, round, and reactive to light. Right eye exhibits no discharge. Left eye exhibits no discharge. No scleral icterus. NECK: Normal range of motion. Neck supple. No JVD present. No spinous process tenderness present. No carotid bruit present. No rigidity. No tracheal deviation and normal range of motion present. No Brudzinski's sign and no Kernig 's sign noted. CV: Normal rate, regular rhythm, normal heart sounds and intact distal pulses. There is no peripheral edema. Palpable radial pulses bue. PULM/CHEST: Effort normal and breath sounds normal. No respiratory distress. No stridor. He has no wheezes. He has no rales. Chest Wall: He exhibits no tenderness. ABD: The abdomen is soft. Bowel sounds are normal. He has no distension. No mass is present. There is no rebound, no guarding, no Mendzoa's sign and no tenderness at McBurney's point. Rovsig negative. Tender to palpation in suprapubic area, no CVA tenderness. MUSC/SKEL: Normal range of motion. No CT or L-spine tenderness. There is no peripheral edema and tenderness. Left knee has wound dressing on it, no discharge and drainage from dressing. LYMPH: No cervical adenopathy. NEURO: He is alert and oriented to person, place, and time. He has normal strength. No cranial nerve deficit or sensory deficit. Coordination and gait normal. GCS eye subscore is 4. GCS verbal subscore is 5. GCS motor subscore is 6. Cerebellar tests wnl. No saddle anesthesia or paresthesia. SKIN: Skin is warm and dry. He is not diaphoretic. PSYCH: He has a normal mood and affect. His behavior is normal. Judgment and thought content normal. : No pain to palpation of testicles, penis is uncircumcised, no genital lesions, no blood in urethral meatus. Medical Decision & Procedures Laboratory Results Test 11/27/17 20:00 11/27/17 20:11 Urine Color YELLOW Urine Appearance ERROR (CLEAR) Urine pH 5.0 (4.5-7.5) Urine Specific Goldonna 1.016 (1.000-1.030) Urine Protein NEG (NEG) Urine Glucose (UA) NEG (NEG) Urine Ketones NEG (NEG) Urine Occult Blood NEG (NEG) Urine Nitrite NEG (NEG) Urine Bilirubin NEG (NEG) Urine Urobilinogen NEG (NEG) Urine Leukocyte Esterase NEG (NEG) Bedside Hemoglobin 9.9 g/dl (14.0-18.0) Bedside Hematocrit 29 % (42-52) Bedside Sodium 136 mEq/L (135-144) Bedside Potassium 3.9 mEq/L (3.3-5.0) Bedside Chloride 101 mEq/L (101-112) Bedside Total CO2 23 mEq/l (24-31) Anion Gap 17.0 mmol/L (16-25) Bedside Blood Urea Nitrogen 23 mg/dl (7-18) Bedside Creatinine 1.1 mg/dl (0.6-1.3) Bedside Glucose (other) 161 mg/dl (70-99) Bedside Ionized Calcium (Piotr) 1.05 mmol/l (1.12-1.32) Laboratory results reviewed by ia ED Course 194: The patient was evaluated in room A11. A complete history and physical exam was performed. 2020: Nursing placed a Tran catheter in the patient and 1200cc of urine came out. He feels much better after having the Tran catheter placed and having his bladder decompressed. His creatinine is 1.1, wnl and at baseline. 2043: Upon reevaluation, the patient's vitals are stable. He feels much better. He is resting comfortably and his is laughing at bedside. His urinalysis came back negative. He will follow up with urology. He notes that he has never seen a urologist before. ecommerce marketing manager Jovi will attempt to get him an appointment with urology on Wednesday. DISCHARGE - Plan of care discussed with patient and questions answered. The patient was given both verbal and printed discharge instructions. The patient verbalized understanding and ability to comply. The patient is to seek outpatient follow up as noted in the discharge instructions. The patient verbalized understanding and ability to comply. The patient is discharged in stable condition. The patient was instructed to return for worsening symptoms. Medical Decision Nursing placed a Tran catheter in the patient and 1200cc of urine came out. He feels much better after having the Tran catheter placed and having his bladder decompressed. His creatinine is 1.1, wnl and at baseline. the patient's vitals are stable. He feels much better. He is resting comfortably and his is laughing at bedside. His urinalysis came back negative. He will follow up with urology. He notes that he has never seen a urologist before. ecommerce marketing manager Jovi will attempt to get him an appointment with urology on Wednesday. Patient reports no back pain, no concern for cord compression, the most likely reason for the patient's urinary retention is the anesthetic received during surgery as well as the patient taking narcotic pain medications. DISCHARGE - Plan of care discussed with patient and questions answered. The patient was given both verbal and printed discharge instructions. The patient verbalized understanding and ability to comply. The patient is to seek outpatient follow up as noted in the discharge instructions. The patient verbalized understanding and ability to comply. The patient is discharged in stable condition. The patient was instructed to return for worsening symptoms. Blood Pressure Screening Patient's blood pressure: Elevated blood pressure Blood pressure disposition: Elevated BP felt to be situational Impression Primary Impression: Urinary retention Scribe Attestation The scribe's documentation has been prepared under my direction and personally reviewed by me in its entirety. I confirm that the note above accurately reflects all work, treatment, procedures, and medical decision making performed by me. The chart was completed utilizing [employer] voice recognition software. Grammatical errors, random word insertions, pronoun errors, and incomplete sentences are an occasional consequence of this system due to software limitations, ambient noise, and hardware issues. Any formal questions or concerns about the content, text, or information contained within the body of this dictation should be directly addressed to the physician for clarification. Departure Information Dispostion Home / Self-Care Referrals Karol Cool M.D. (PCP) Forms HOME CARE DOCUMENTATION FORM, IMPORTANT VISIT INFORMATION Patient Instructions Formerly [facility], 1928–1983
[2017-11-27 20:33] LABS: ISTAT CREATININE 1.1 mg/dl (0.6-1.3); ISTAT IONIZED CALCIUM 1.05 mmol/l (1.12-1.32); ISTAT POTASSIUM 3.9 mEq/L (3.3-5.0)
[2017-11-27] MEDS ORDERED: OXYC1TAB3 PO (20:55)
[2017-11-27] MEDS ORDERED: ACET-1256 PO (20:55)
[2017-11-27] MEDS ORDERED: CLB/200 PO (20:55)
[2017-11-27 20:59] VITALS: BP 113/60; PULSE 81; O2SAT 93
== END 2017-11-27 21:15 | disposition home or self-care (01) ==
LOC: C.EDB 19:39 → C.EDA 21:15
DX: R33.9 Retention of urine, unspecified (principal); K76.0 Fatty (change of) liver, not elsewhere classified; G47.33 Obstructive sleep apnea (adult) (pediatric); Z79.82 Long term (current) use of aspirin; Z96.652 Presence of left artificial knee joint; Z96.649 Presence of unspecified artificial hip joint; Z87.442 Personal history of urinary calculi; Z87.891 Personal history of nicotine dependence; Z91.048 Other nonmedicinal substance allergy status

== ENCOUNTER → 2018-01-04 | Outpatient (CLI) | payer BC ==
[~2018-01-04] MED LIST changes: +OXYC1TAB3 PO; -RXC5 PO
== END | disposition home or self-care (01) ==
LOC: C.RDSM 09:48
PROVIDERS: ATTEND Orthopaedic Surgery
DX: Z96.652 Presence of left artificial knee joint (principal)